=== PATIENT | male | born 1945 | race Caucasian/White ===

== ENCOUNTER → 2016-07-28 | Outpatient (CLI) | payer MEDICARE ==
[2016-07-28 10:57] LABS: ABSOLUTE EOSINOPHILS # (AUTO) 0.1 10^3/uL (0.0-0.6); ABSOLUTE LYMPHOCYTES (AUTO) 0.6 10^3/uL (0.5-4.7); ABSOLUTE MONOCYTES (AUTO) 0.4 10^3/uL (0.1-1.4); ABSOLUTE NEUT (AUTO) 4.2 10^3/uL (1.7-8.2); BASOPHILS % (AUTO) 0.4 % (0-2); EOSINOPHILS % (AUTO) 2.5 % (0-6); HEMATOCRIT 34.2 % (37.9-51.0); HGB HCT DIFFERENCE 1.8; LYMPHOCYTES % (AUTO) 11.8 % (13-45); MEAN CORPUSCULAR HGB CONC 35.2 g/dL (32.0-36.0); MEAN CORPUSCULAR VOLUME 85 fl (80-97); MONOCYTES % (AUTO) 7.5 % (3-13); RED BLOOD COUNT 4.01 10^6/uL (4.35-5.55); RED CELL DISTRIBUTION WIDTH 13.2 % (11.5-14.0); SEGMENTED NEUTROPHILS % (AUTO) 77.8 % (42-78); WHITE BLOOD COUNT 5.5 10^3/uL (4.0-10.5)
[2016-07-28 11:23] LABS: ANION GAP 13 (5-19); BLOOD UREA NITROGEN 8 mg/dL (7-20); CALCIUM 9.3 mg/dL (8.4-10.2); CARBON DIOXIDE 26 mmol/L (22-30); CHLORIDE 100 mmol/L (98-107); GLUCOSE 114 mg/dL (75-110); POTASSIUM 4.3 mmol/L (3.6-5.0)
== END ==
LOC: LAB 10:36
PROVIDERS: ATTEND Internal Medicine Gastroenterology
DX: R19.7 Diarrhea, unspecified (principal)
CPT/HCPCS: 36415; 80048; 85025

== ENCOUNTER → 2016-08-09 | Outpatient (CLI) | payer MEDICARE ==
[2016-08-09 11:29] LABS: ABSOLUTE BASOPHILS # (AUTO) 0.1 10^3/uL (0.0-0.2); ABSOLUTE EOSINOPHILS # (AUTO) 0.2 10^3/uL (0.0-0.6); ABSOLUTE LYMPHOCYTES (AUTO) 1.3 10^3/uL (0.5-4.7); ABSOLUTE MONOCYTES (AUTO) 0.4 10^3/uL (0.1-1.4); ABSOLUTE NEUT (AUTO) 4.2 10^3/uL (1.7-8.2); BASOPHILS % (AUTO) 0.8 % (0-2); EOSINOPHILS % (AUTO) 3.7 % (0-6); HEMATOCRIT 39.3 % (37.9-51.0); HEMOGLOBIN 12.9 g/dL (13.5-17.0); HGB HCT DIFFERENCE -0.6; LYMPHOCYTES % (AUTO) 21.6 % (13-45); MEAN CORPUSCULAR HEMOGLOBIN 28.9 pg (27.0-33.4); MEAN CORPUSCULAR HGB CONC 32.9 g/dL (32.0-36.0); MEAN CORPUSCULAR VOLUME 88 fl (80-97); MONOCYTES % (AUTO) 6.2 % (3-13); RED BLOOD COUNT 4.48 10^6/uL (4.35-5.55); RED CELL DISTRIBUTION WIDTH 13.2 % (11.5-14.0); SEGMENTED NEUTROPHILS % (AUTO) 67.7 % (42-78); WHITE BLOOD COUNT 6.2 10^3/uL (4.0-10.5)
[2016-08-09 11:53] LABS: ALANINE AMINOTRANSFERASE 26 U/L (21-72); ALBUMIN 4.3 g/dL (3.5-5.0); ALKALINE PHOSPHATASE 73 U/L (38-126); AMYLASE 59 U/L (30-110); ANION GAP 13 (5-19); ASPARTATE AMINO TRANSFERASE 30 U/L (17-59); BILIRUBIN,TOTAL 0.5 mg/dL (0.2-1.3); BLOOD UREA NITROGEN 12 mg/dL (7-20); CARBON DIOXIDE 30 mmol/L (22-30); CHLORIDE 100 mmol/L (98-107); CREATININE RESULT 1.03 mg/dL (0.52-1.25); GLUCOSE 100 mg/dL (75-110); LIPASE 31.4 U/L (23-300); POTASSIUM 5.1 mmol/L (3.6-5.0); SODIUM 142.9 mmol/L (137-145); TOTAL PROTEIN 7.6 g/dL (6.3-8.2)
[2016-08-09 12:06] LABS: ERYTHROCYTE SEDIMENTATION RATE 41 mm/hr (0-20)
[2016-08-09 12:42] LABS: C-REACTIVE PROTEIN < 5.0 mg/L (<10.0)
[2016-08-10 06:38] LABS: IMMUNOGLOBULIN E 29 IU/mL (0-100)
[2016-08-10 07:11] LABS: IMMUNOGLOBULIN M 17 mg/dL (15-143)
[2016-08-10 11:40] LABS: ADRENOCORTICOTROPIC HORMONE 23.3 pg/mL (7.2-63.3)
[2016-08-10 13:38] LABS: IGG SUBCLASS 1 820 mg/dL (422-1292); IGG SUBCLASS 2 364 mg/dL (117-747); IGG SUBCLASS 3 37 mg/dL (41-129); IMMUNOGLOBULIN G 1325 mg/dL (700-1600)
[2016-08-10 14:31] LABS: IGG SUBCLASS 4 47 mg/dL (1-291)
[2016-08-11 09:09] LABS: DEAMIDATED GLIADIN IGA AB 1 units (0-19); DEAMIDATED GLIADIN IGG AB 7 units (0-19); IMMUNOGLOBULIN A 2 90 mg/dL (61-437); T-TRANSGLUTAMINASE (TTG) IGG 3 U/mL (0-5)
[2016-08-11 16:39] LABS: CYTOPLASMIC (C-ANCA) <1:20 titer (Neg:<1:20)
== END ==
LOC: LAB 10:24
PROVIDERS: ATTEND Internal Medicine Infectious Disease
DX: E55.9 Vitamin D deficiency, unspecified (principal); Z79.899 Other long term (current) drug therapy; D51.9 Vitamin B12 deficiency anemia, unspecified; N41.9 Inflammatory disease of prostate, unspecified; D83.9 Common variable immunodeficiency, unspecified; D64.9 Anemia, unspecified; R11.0 Nausea; R10.9 Unspecified abdominal pain; G89.29 Other chronic pain
CPT/HCPCS: 36415; 80053; 82024; 82088; 82150; 82533; 82607; 82728; 82784; 82785; 82787; 83520; 83540; 83550; 83690; 84153; 84436; 84443; 85025; 85652; 86021; 86038; 86140; 86317

== ENCOUNTER 2016-08-21 15:00 | Emergency (ER) | payer MEDICARE ==
[2016-08-21] MEDS ORDERED: ASPIRIN 81 MG TABLET, CHEWABLE PO ONE (15:23)
--- NOTE | 2016-08-21 15:29 | ER Document Report ---
ED Medical Screen (RME) - General Chief Complaint: Shortness Of Breath Stated Complaint: FEVER Time seen by provider: 15:25 Mode of Arrival: Ambulatory Information source: Patient Notes: 71-year-old nonsmoking, hypertensive, IgG immunodeficiency complaining of weakness since yesterday morning, nausea and shortness of breath. He thinks he caught something [place] in [place]. No chest pain. No cough on and on for one week. Pneumonia 2015. No urinary symptoms. Chills at 0200, no sweats. Got flu shot this year. TRAVEL OUTSIDE OF THE [place] IN LAST 30 DAYS: No - Related Data Allergies/Adverse Reactions: meperidine HCl [From Demerol] Allergy (Mild, Verified 08/21/16 15:24) Hives Past Medical History - Social History Chew tobacco use (# tins/day): No Frequency of alcohol use: Occasional Drug Abuse: None - Past Medical History Cardiac Medical History: Reports: Hx Hypercholesterolemia, Hx Hypertension Pulmonary Medical History: Reports: Hx Pneumonia Renal/ Medical History: Reports: Hx Benign Prostatic Hyperplasia, Hx Renal Insufficiency. Denies: Hx Peritoneal Dialysis GI Medical History: Reports: Hx Gastroesophageal Reflux Disease, Hx Hiatal Hernia, Hx Ulcer Psychiatric Medical History: Reports: Hx Anxiety, Hx Depression Past Surgical History: Reports: Hx Abdominal Surgery - HERNIA, Hx Appendectomy, Hx Herniorrhaphy, Hx Orthopedic Surgery - knee surgery x4 - Immunizations Immunizations up to date: Yes Hx Diphtheria, Pertussis, Tetanus Vaccination: No Physical Exam - Vital signs Vitals: Temp Pulse Resp BP Pulse Ox 98.2 F 69 20 143/52 H 96 08/21/16 15:17 08/21/16 15:17 08/21/16 15:17 08/21/16 15:17 08/21/16 15:17 Course - Vital Signs Vital signs: Temp Pulse Resp BP Pulse Ox 98.2 F 69 20 143/52 H 96 08/21/16 15:17 08/21/16 15:17 08/21/16 15:17 08/21/16 15:17 08/21/16 15:17
[2016-08-21 16:06] LABS: ABSOLUTE EOSINOPHILS # (AUTO) 0.1 10^3/uL (0.0-0.6); ABSOLUTE LYMPHOCYTES (AUTO) 1.3 10^3/uL (0.5-4.7); ABSOLUTE MONOCYTES (AUTO) 0.5 10^3/uL (0.1-1.4); ABSOLUTE NEUT (AUTO) 8.6 10^3/uL (1.7-8.2); BASOPHILS % (AUTO) 0.3 % (0-2); EOSINOPHILS % (AUTO) 1.2 % (0-6); HEMATOCRIT 32.8 % (37.9-51.0); HEMOGLOBIN 11.6 g/dL (13.5-17.0); LYMPHOCYTES % (AUTO) 12.6 % (13-45); MEAN CORPUSCULAR HEMOGLOBIN 29.9 pg (27.0-33.4); MEAN CORPUSCULAR HGB CONC 35.3 g/dL (32.0-36.0); MEAN CORPUSCULAR VOLUME 85 fl (80-97); MONOCYTES % (AUTO) 4.8 % (3-13); RED BLOOD COUNT 3.87 10^6/uL (4.35-5.55); RED CELL DISTRIBUTION WIDTH 12.9 % (11.5-14.0); SEGMENTED NEUTROPHILS % (AUTO) 81.1 % (42-78); WHITE BLOOD COUNT 10.6 10^3/uL (4.0-10.5)
[2016-08-21 16:35] LABS: ALANINE AMINOTRANSFERASE 26 U/L (21-72); ALBUMIN 4.3 g/dL (3.5-5.0); ALKALINE PHOSPHATASE 61 U/L (38-126); ANION GAP 11 (5-19); ASPARTATE AMINO TRANSFERASE 21 U/L (17-59); BILIRUBIN,TOTAL 0.9 mg/dL (0.2-1.3); BLOOD UREA NITROGEN 20 mg/dL (7-20); CALCIUM 9.2 mg/dL (8.4-10.2); CARBON DIOXIDE 27 mmol/L (22-30); CHLORIDE 95 mmol/L (98-107); CREATINE KINASE 50 U/L (55-170); CREATININE RESULT 1.43 mg/dL (0.52-1.25); GLUCOSE 109 mg/dL (75-110); POTASSIUM 4.8 mmol/L (3.6-5.0); SODIUM 133.2 mmol/L (137-145); TOTAL PROTEIN 7.1 g/dL (6.3-8.2)
--- NOTE | 2016-08-21 16:37 | ER Document Report ---
ED Respiratory Problem - General Chief Complaint: Shortness Of Breath Stated Complaint: FEVER Mode of Arrival: Ambulatory Information source: Patient TRAVEL OUTSIDE OF THE [place] IN LAST 30 DAYS: No - HPI Patient complains to provider of: Other - FEVER, COUGH Onset: This morning Duration: Intermittent episodes Initiating Event: Other - SEE PMH Quality of pain: No pain Severity: Mild Context: Other - IMMUNE DEFICIENCY SYNDROME, FOLLOWED BY IMMUNOLOGY @ [place] Sputum amount: Scant Sputum color: Yellow Sputum consistency: Mucoid Associated symptoms: Cough, Fever - SUBJECTIVE Similar symptoms previously: Yes - GETS PNEUMONIA FREQUENTLY, W/ SIMILAR SXS. Recently seen / treated by doctor: Yes - I.D. SPECIALIST, 2 WKS AGO - Related Data Allergies/Adverse Reactions: meperidine HCl [From Demerol] Allergy (Mild, Verified 08/21/16 15:24) Hives Past Medical History - General Information source: Patient - Social History Smoking Status: Never Smoker Chew tobacco use (# tins/day): No Frequency of alcohol use: Occasional Drug Abuse: None Family History: Reviewed & Not Pertinent Patient has suicidal ideation: No Patient has homicidal ideation: No - Past Medical History Cardiac Medical History: Reports: Hx Hypercholesterolemia, Hx Hypertension Pulmonary Medical History: Reports: Hx Pneumonia Neurological Medical History: Reports: None Endocrine Medical History: Reports: None Renal/ Medical History: Reports: Hx Benign Prostatic Hyperplasia, Hx Renal Insufficiency. Denies: Hx Peritoneal Dialysis Malignancy Medical History: Reports None GI Medical History: Reports: Hx Gastroesophageal Reflux Disease, Hx Hiatal Hernia, Hx Ulcer Musculoskeltal Medical History: Reports None Psychiatric Medical History: Reports: Hx Anxiety, Hx Depression Infectious Medical History: Reports: Other - IMMUNE DEFICIENCY SYNDROME Past Surgical History: Reports: Hx Abdominal Surgery - HERNIA, Hx Appendectomy, Hx Herniorrhaphy, Hx Orthopedic Surgery - knee surgery x4 - Immunizations Immunizations up to date: Yes Hx Diphtheria, Pertussis, Tetanus Vaccination: No Hx Pneumococcal Vaccination: 07/25/08 Review of Systems - Review of Systems Constitutional: See HPI EENT: No symptoms reported. denies: Throat pain, Difficulty swallowing Cardiovascular: No symptoms reported. denies: Chest pain Respiratory: See HPI Gastrointestinal: No symptoms reported Genitourinary: No symptoms reported Musculoskeletal: No symptoms reported Skin: No symptoms reported. denies: Lesions Neurological/Psychological: No symptoms reported. denies: Headaches Physical Exam - Vital signs Vitals: Temp Pulse Resp BP Pulse Ox 98.2 F 69 20 143/52 H 96 08/21/16 15:17 08/21/16 15:17 08/21/16 15:17 08/21/16 15:17 08/21/16 15:17 Interpretation: Hypertensive. No: Tachycardic, Hypoxic, Tachypneic, Febrile - General General appearance: Appears well, Alert In distress: None - HEENT Head: Normocephalic Eyes: Normal Conjunctiva: Normal Ears: Normal Nasal: Normal Mouth/Lips: Normal Mucous membranes: Normal Pharynx: Normal Neck: Normal, Supple - Respiratory Respiratory status: No respiratory distress Chest status: Nontender Breath sounds: Nonproductive cough, Rales - R. BASE. No: Rhonchi, Wheezing - Cardiovascular Rhythm: Regular Heart sounds: Normal auscultation Murmur: No - Abdominal Inspection: Normal Distension: No distension - Extremities General upper extremity: Normal inspection General lower extremity: Normal inspection - Neurological Neuro grossly intact: Yes Cognition: Normal Orientation: AAOx4 - Psychological Associated symptoms: Normal affect, Normal mood - Skin Skin Temperature: Warm Skin Moisture: Dry Skin Color: Normal Skin Turgor: Elastic Course - Vital Signs Vital signs: Temp Pulse Resp BP Pulse Ox 98.2 F 69 20 143/52 H 97 08/21/16 15:17 08/21/16 15:17 08/21/16 16:10 08/21/16 15:17 08/21/16 16:10 - Laboratory Result Diagrams: 08/21/16 15:50 08/21/16 15:50 Laboratory results interpreted by me: 08/21/16 08/21/16 15:50 15:50 WBC 10.6 H RBC 3.87 L Hgb 11.6 L Hct 32.8 L Seg Neutrophils % 81.1 H Lymphocytes % 12.6 L Absolute Neutrophils 8.6 H Sodium 133.2 L Chloride 95 L Creatinine 1.43 H Est GFR ( Amer) 59 L Est GFR (Non-Af Amer) 49 L Creatine Kinase 50 L Discharge - Discharge Clinical Impression: Immune deficiency disorder, disease or syndrome Pneumonia Qualifiers: Pneumonia type: due to unspecified organism Laterality: right Lung location: lower lobe of lung Qualified Code(s): J18.1 - Lobar pneumonia, unspecified organism Condition: Stable Disposition: HOME, SELF-CARE Instructions: Pneumonia ([facility]), Augmentin ([facility]) Additional Instructions: BEGIN TAKING AUGMENTIN, 500 mg THREE TIMES A DAY (TAKE 2 DOSES TODAY) CONTINUE OTHER MEDS BEFORE. DRINK PLENTY OF FLUIDS. TAKE MUCINEX OR OTHER EXPECTORANT TO HELP LOOSEN SECRETIONS. FOLLOW UP WITH YOUR INFECTIOUS DISEASE DOCTOR, CALL TUESDAY FOR ADVICE. RETURN TO E.R. IF YOU GET WORSE IN ANY WAY. Referrals: HEIDI AVILA MD [NO LOCAL MD] - Follow up as needed
[2016-08-21 16:45] LABS: CREATINE KINASE MB 0.91 ng/mL (<4.55)
[2016-08-21 16:46] LABS: TROPONIN I < 0.012 ng/mL
[2016-08-21 17:42] VITALS: BP 168/70
--- NOTE | 2016-08-21 20:05 | EKG REPORT ---
SEVERITY:- ABNORMAL ECG - SINUS RHYTHM FIRST DEGREE AV BLOCK PROBABLE LEFT ATRIAL ABNORMALITY LVH WITH SECONDARY REPOLARIZATION ABNORMALITY : Confirmed by: Lucy Barnes MD 21-Aug-2016 20:04:46
== END 2016-08-21 17:25 | disposition home or self-care (01) ==
LOC: ER 15:00
DX: J18.1 Lobar pneumonia, unspecified organism (principal); D84.9 Immunodeficiency, unspecified; I10 Essential (primary) hypertension; R05 Cough; R09.89 Other specified symptoms and signs involving the circulatory and respiratory systems; Z88.5 Allergy status to narcotic agent
CPT/HCPCS: 93005; 99285; 36415; 82553; 82550; 85025; 80053; 84484; 71010; 93010; A9270

== ENCOUNTER 2016-08-24 18:15 | Emergency (ER) | payer OTHER, MEDICARE ==
[2016-08-24] MEDS ORDERED: NAPROXEN 250 MG TABLET PO ONE (20:06)
[2016-08-24] MEDS ORDERED: ACETAMINOPHEN 325 MG TABLET PO ONE (20:06)
--- NOTE | 2016-08-24 20:08 | ER Document Report ---
ED General - General Chief Complaint: Back Pain Stated Complaint: LOWER BACK PAIN Notes: Patient is a 71-year-old male with past medical history of chronic back pain currently off of all his chronic pain medications who presents after he had an acute episode of back pain that is bilateral central back. States that this started after he got up and out of his chair very quickly. States after the pain developed again have "one of my typical panic attacks" when she began to hyperventilate, feel short of breath and lightheaded. States that this did all spontaneously resolved after approximate 45 minutes. At time of arrival he states that his back pain is mostly resolved but does continue to complain of a mild midthoracic bilateral back pain that is dull, aching in nature. Nothing improves or worsens the pain. He denies any urinary incontinence, retention, weakness, numbness, or difficulty ambulating. He has not seen his primary care physician regarding today's concerns. TRAVEL OUTSIDE OF THE [place] IN LAST 30 DAYS: No - Related Data Allergies/Adverse Reactions: meperidine HCl [From Demerol] Allergy (Mild, Verified 08/21/16 15:24) Dinoes Past Medical History - General Information source: Patient - Social History Smoking Status: Never Smoker Frequency of alcohol use: None Drug Abuse: None Lives with: Spouse/Significant other Family History: Reviewed & Not Pertinent - Past Medical History Cardiac Medical History: Reports: Hx Hypercholesterolemia, Hx Hypertension Pulmonary Medical History: Reports: Hx Pneumonia Renal/ Medical History: Reports: Hx Benign Prostatic Hyperplasia, Hx Renal Insufficiency. Denies: Hx Peritoneal Dialysis GI Medical History: Reports: Hx Gastroesophageal Reflux Disease, Hx Hiatal Hernia, Hx Ulcer Psychiatric Medical History: Reports: Hx Anxiety, Hx Depression Past Surgical History: Reports: Hx Abdominal Surgery - HERNIA, Hx Appendectomy, Hx Herniorrhaphy, Hx Orthopedic Surgery - knee surgery x4, back surgery - Immunizations Immunizations up to date: Yes Hx Diphtheria, Pertussis, Tetanus Vaccination: No Hx Pneumococcal Vaccination: 07/25/08 Review of Systems - Review of Systems Notes: Constitutional: Negative for fever. HENT: Negative for sore throat. Eyes: Negative for visual changes. Cardiovascular: Negative for chest pain. Respiratory: Negative for shortness of breath. Gastrointestinal: Negative for abdominal pain, vomiting or diarrhea. Genitourinary: Negative for dysuria. Musculoskeletal: Positive for back pain. Skin: Negative for rash. Neurological: Negative for headaches, weakness or numbness. 10 point ROS negative except as marked above and in HPI. Physical Exam - Vital signs Vitals: Temp Pulse Resp BP Pulse Ox 97.6 F 72 18 155/82 H 96 08/24/16 18:23 08/24/16 18:23 08/24/16 18:23 08/24/16 18:23 08/24/16 18:23 Interpretation: Hypertensive Notes: PHYSICAL EXAMINATION: GENERAL: Well-appearing, well-nourished and in no acute distress. HEAD: Atraumatic, normocephalic. EYES: Pupils equal round and reactive to light, extraocular movements intact, sclera anicteric, conjunctiva are normal. ENT: nares patent, oropharynx clear without exudates. Moist mucous membranes. NECK: Normal range of motion, supple without lymphadenopathy LUNGS: Breath sounds clear to auscultation bilaterally and equal. No wheezes rales or rhonchi. HEART: Regular rate and rhythm without murmurs ABDOMEN: Soft, nontender, normoactive bowel sounds. No guarding, no rebound. No masses appreciated. EXTREMITIES: Normal range of motion, no pitting or edema. No cyanosis. Back: No midline spinal Tenderness, step-offs or deformities. Mild pain in the bilateral lateral perilumbar spine in the T10 T12 region NEUROLOGICAL: 5 out of 5 strength both distally and proximally bilateral lower extremities. 2+ patellar reflexes bilaterally. No clonus. Sensation grossly intact in the bilateral lower extremities. Patient is able to ambulate without difficulty. PSYCH: Normal mood, normal affect. SKIN: Warm, Dry, normal turgor, no rashes or lesions noted. Course - Re-evaluation Re-evalutation: 08/24/16 20:07 Presentation of a well appearing patient complaining of acute on chronic back pain. No rapid progression of symptoms, systemic symptoms including fevers, chills, weight loss, history of recent bacterial infection, bilateral symptoms, numbness, weakness, difficulty walking, urinary retention or bowel incontinence , personal history of cancer, immunosuppression, diabetes, known AAA, or history of IV drug use. Exam is without point tenderness over vertebral bodies , pulsatile abdominal mass, and patient has symmetric and intact lower extremity strength, sensation, and reflexes without clonus. 2+ symmetric medial malleolar and dorsalis pedis pulses Based on history and physical, I have a very low suspicion of a concerning etiology of pain including epidural compression syndrome, spinal infection, transverse myelitis, malignancy, abdominal aortic aneurysm, renal colic, acute lower extremity claudication, neurogenic claudication, ankylosing spondylitis, or other intra-abdominal process. Due to absence of concerning risk factors in history and physical as well as absence of rapidly progressive, severe, or bilateral symptoms, will defer imaging at this point. However, given patient's brief episode that she characterizes as consistent with his typical panic attack , will obtain basic laboratories including a troponin, EKG and basic metabolic panel. If these are reassuring will plan for discharge home with return precautions and follow-up recommendations 08/24/16 21:42 Patient continues to be asymptomatic and back pain is improved. Return is unremarkable as well as EKG.At this time will discharge with return precautions and follow-up recommendations. Verbal discharge instructions given a the bedside and opportunity for questions given. Medication warnings reviewed. Patient is in agreement with this plan and has verbalized understanding of return precautions and the need for primary care follow-up in the next 24-72 hours. - Vital Signs Vital signs: Temp Pulse Resp BP Pulse Ox 97.8 F 68 18 168/75 H 98 08/24/16 22:09 08/24/16 22:09 08/24/16 22:09 08/24/16 22:09 08/24/16 22:09 - Laboratory Result Diagrams: 08/24/16 20:21 Laboratory results interpreted by me: 08/24/16 20:21 Sodium 132.9 L Chloride 96 L - EKG Interpretation by Me Additional EKG results interpreted by me: 08/24/16 21:41 Normal sinus rhythm. Rate 63.Elevations or depressions. QTC 439 Discharge - Discharge Clinical Impression: Back pain Qualifiers: Back pain location: low back pain Chronicity: acute Back pain laterality: bilateral Sciatica presence: without sciatica Qualified Code(s): M54.5 - Low back pain Condition: Good Disposition: HOME, SELF-CARE Additional Instructions: You have been seen in the Emergency Department (ED) today for back pain. Your workup and exam have not shown any acute abnormalities and you are likely suffering from muscle strain or possible problems with your discs, but there is no treatment that will fix your symptoms at this time. Please take the naproxen that has been prescribed as directed. You should also purchase a local lidocaine cream such as "aspercreme with lidocaine" and use per bottle instructions to the affected area. Apply heat to the area as often as you are able. Continue to keep active and avoid prolonged periods of bed rest. Please follow up with your doctor as soon as possible regarding today's ED visit and your back pain. Return to the ED for worsening back pain, fever, weakness or numbness of either leg, or if you develop either (1) an inability to urinate or have bowel movements, or (2) loss of your ability to control your bathroom functions (if you start having "accidents"), or if you develop other new symptoms that concern you.concern you. Prescriptions: Naproxen 500 mg PO BID #60 tablet Referrals: RADHA DIXON MD [Primary Care Provider] - Follow up as needed
[2016-08-24 20:55] LABS: ANION GAP 10 (5-19); BLOOD UREA NITROGEN 12 mg/dL (7-20); CALCIUM 9.7 mg/dL (8.4-10.2); CARBON DIOXIDE 27 mmol/L (22-30); CHLORIDE 96 mmol/L (98-107); CREATININE RESULT 1.02 mg/dL (0.52-1.25); GLUCOSE 107 mg/dL (75-110); POTASSIUM 4.7 mmol/L (3.6-5.0); SODIUM 132.9 mmol/L (137-145)
[2016-08-24 22:11] VITALS: BP 168/75
--- NOTE | 2016-08-25 09:24 | EKG REPORT ---
SEVERITY:- ABNORMAL ECG - SINUS RHYTHM NONSPECIFIC INTRAVENTRICULAR CONDUCTION DELAY LEFT VENTRICULAR HYPERTROPHY : Confirmed by: Alonzo Corey 25-Aug-2016 09:23:59
== END 2016-08-24 22:11 | disposition home or self-care (01) ==
LOC: ER 18:15
DX: M54.5 Low back pain (principal); M54.6 Pain in thoracic spine; G89.29 Other chronic pain; F41.0 Panic disorder [episodic paroxysmal anxiety]; I10 Essential (primary) hypertension; Z88.5 Allergy status to narcotic agent
CPT/HCPCS: 36415; 80048; 84484; 93005; 93010; 99283

== ENCOUNTER 2016-09-14 09:22 | Emergency (ER) | payer OTHER, MEDICARE ==
--- NOTE | 2016-09-14 10:09 | ER Document Report ---
ED General - General Time seen by provider: 10:00 Mode of Arrival: Ambulatory Information source: Patient TRAVEL OUTSIDE OF THE [place] IN LAST 30 DAYS: No - HPI Associated symptoms: Diarrhea, Weakness <TRACI LEE - Last Filed: 09/14/16 11:08> <CAROLE HARVEY - Last Filed: 09/14/16 13:23> - General Chief Complaint: Breathing Difficulty Stated Complaint: SHORTNESS OF BREATH Notes: Patient is a 71-year-old male presenting to the emergency department for her diarrhea and weakness. Patient states he has had diarrhea for the past 3 months with no relief. Patient was seen his PCP for this was given him some medications but none have provided any relief. Patient's PCP is Dr. Dixon. Patient states that he has been feeling very weak and it is very difficult for him to even stand up patient as he has no energy. Patient also complains of having some cough and sinus headache. Patient has been asymptomatic since relieved his symptoms. Patient states that his diarrhea is approximately 3-4 times a day and is heavier in the mornings. Patient also complains of some back pain and that she has some chronic low back pain from degenerative disease ; patient is currently seeing pain management for this. Patient has a history of IgG deficiency and takes Hizentra for this. Patient also has a history of renal insufficiency, depression, anxiety, anemia, GERD, history of hernia and BPH. Patient had his diarrhea cultured at [facility] in May and it grew 2 different Lilliam species. Patient is allergic to mepridine HCl. (TRACI LEE) - Related Data Allergies/Adverse Reactions: meperidine HCl [From Demerol] Allergy (Mild, Verified 08/21/16 15:24) Hives Past Medical History - General Information source: Patient - Social History Smoking Status: Never Smoker Cigarette use (# per day): No Chew tobacco use (# tins/day): No Frequency of alcohol use: Rare Drug Abuse: None Family History: None - Past Medical History Cardiac Medical History: Reports: Hx Hypercholesterolemia, Hx Hypertension Pulmonary Medical History: Reports: Hx Pneumonia Renal/ Medical History: Reports: Hx Benign Prostatic Hyperplasia, Hx Renal Insufficiency GI Medical History: Reports: Hx Gastroesophageal Reflux Disease, Hx Hiatal Hernia, Hx Ulcer Psychiatric Medical History: Reports: Hx Anxiety, Hx Depression Past Surgical History: Reports: Hx Abdominal Surgery - HERNIA, Hx Appendectomy, Hx Herniorrhaphy, Hx Orthopedic Surgery - knee surgery x4, back surgery - Immunizations Immunizations up to date: Yes Hx Diphtheria, Pertussis, Tetanus Vaccination: No Hx Pneumococcal Vaccination: 07/25/08 <TRACI LEE - Last Filed: 09/14/16 11:08> Review of Systems - Review of Systems Constitutional: No symptoms reported EENT: No symptoms reported Cardiovascular: No symptoms reported Respiratory: No symptoms reported Gastrointestinal: No symptoms reported Genitourinary: No symptoms reported Male Genitourinary: No symptoms reported Musculoskeletal: No symptoms reported Skin: No symptoms reported Hematologic/Lymphatic: No symptoms reported Neurological/Psychological: No symptoms reported -: Yes All other systems reviewed and negative <TRACI LEE - Last Filed: 09/14/16 11:08> Physical Exam - Vital signs Interpretation: Normal - General General appearance: Appears well, Alert - HEENT Head: Normocephalic, Atraumatic Eyes: Normal Pupils: PERRL Mucous membranes: Moist - Respiratory Respiratory status: No respiratory distress Chest status: Nontender Breath sounds: Other - Course breath sounds during the cough Chest palpation: Normal - Cardiovascular Rhythm: Regular Heart sounds: Normal auscultation Murmur: No - Abdominal Inspection: Normal Distension: No distension Bowel sounds: Normal Tenderness: Nontender Organomegaly: No organomegaly - Back Back: Normal, Tender - Lumbar musculature is tender to palpation consistent with chronic back pain - Extremities General upper extremity: Normal inspection, Normal ROM, Normal strength General lower extremity: Normal inspection, Normal ROM, Normal strength - Neurological Neuro grossly intact: Yes Cognition: Normal Orientation: AAOx4 Corry Coma Scale Eye Opening: Spontaneous Corry Coma Scale Verbal: Oriented Corry Coma Scale Motor: Obeys Commands Corry Coma Scale Total: 15 Speech: Normal - Psychological Associated symptoms: Normal affect, Normal mood - Skin Skin Temperature: Warm Skin Moisture: Dry <TRACI LEE - Last Filed: 09/14/16 11:08> Course - Laboratory Result Diagrams: 09/14/16 10:15 09/14/16 10:15 <TRACI LEE - Last Filed: 09/14/16 11:08> - Laboratory Result Diagrams: 09/14/16 10:15 09/14/16 10:15 - Diagnostic Test Radiology reviewed: Image reviewed, Reports reviewed - Chest x-ray does not show any acute process - EKG Interpretation by Me EKG shows normal: Sinus rhythm, [place], Intervals, QRS Complexes, ST-T Waves Rate: Normal - 59 Rhythm: NSR Voltage: Consistant with [facility] - Consults Dr. Dixon Time consulted: 13:10 Consulted provider: follow-up in office - He will have the office call the patient to schedule an appointment. <CAROLE HARVEY - Last Filed: 09/14/16 13:23> - Vital Signs Vital signs: Temp Pulse Resp BP Pulse Ox 97.8 F 63 15 139/67 H 96 09/14/16 09:25 09/14/16 09:25 09/14/16 10:00 09/14/16 09:25 09/14/16 10:00 (TRACI LEE) (CAROLE HARVEY) - Laboratory Laboratory results interpreted by me: 09/14/16 09/14/16 10:15 10:15 RBC 4.08 L Hgb 12.0 L Hct 34.2 L ESR 39 H Sodium 133.2 L Creatine Kinase 31 L (CAROLE HARVEY) Discharge <TRACI LEE - Last Filed: 09/14/16 11:08> <CAROLE HARVEY - Last Filed: 09/14/16 13:23> - Discharge Clinical Impression: Viral URI with cough, Chronic diarrhea Condition: Stable Disposition: HOME, SELF-CARE Additional Instructions: Upper Respiratory Illness: You have a viral infection of the respiratory passages -- a "cold." This common infection causes nasal congestion, drainage, and often sore throat and cough. It is caused by a virus and is highly contagious. The disease usually lasts a week or more, though the worst symptoms are usually over in 3 or 4 days. There is no "cure" for the viral infection -- it must run its course. If there is a complication, such as bacterial infection in the nose, sinuses, middle ear, or bronchial tubes, antibiotics may be required, but antibiotics won 't affect the virus. If you smoke, you should STOP!! Drink plenty of fluids. A humidifier may help. An expectorant medication or decongestant may make you more comfortable. Use acetaminophen or ibuprofen for fever or aches. See the doctor if fever persists over two or three days, if there is any significant worsening of your symptoms, or if you simply fail to improve as expected. Diarrhea Diarrhea means frequent, watery stools. There are many causes. Any problem that keeps the intestinal tract from absorbing water from the stool can lead to diarrhea. A sudden new diarrhea problem is usually caused by a virus, food sensitivity, toxic bacteria, or drugs. In this case, we expect the problem to go away soon. Testing is done only if you seem seriously ill from the diarrhea. If you have chronic diarrhea, or diarrhea that keeps coming back, we need to find out why. Chronic diarrhea can be due to inflammation of the bowels such as Crohn's disease or ulcerative colitis, food sensitivity such as intolerance to lactose or wheat protein, irritable bowel syndrome, and other problems. If your diarrhea is a significant problem but it's not clear why you have it, we' ll refer you to a specialist for further testing. DR. DIXON'S OFFICE WILL CALL YOU TO SCHEDULE AN APPOINTMENT. RETURN TO THE EMERGENCY ROOM IF ANY NEW OR WORSENING SYMPTOMS. Referrals: RADHA DIXON MD [ACTIVE STAFF] - (THE OFFICE WILL CALL TO SCHEDULE AN APPOINTMENT.) Scribe Attestation: 09/14/16 13:23 I personally performed the services described in the documentation, reviewed and edited the documentation which was dictated to the scribe in my presence, and it accurately records my words and actions. (CAROLE HARVEY) Scribe Documentation - Scribe Written by Scribjeremy:: Traci Lee 09/14/16 11:11 acting as scribe for :: Porfirio <TRACI LEE - Last Filed: 09/14/16 11:08>
[2016-09-14 10:49] LABS: ABSOLUTE EOSINOPHILS # (AUTO) 0.1 10^3/uL (0.0-0.6); ABSOLUTE LYMPHOCYTES (AUTO) 1.4 10^3/uL (0.5-4.7); ABSOLUTE MONOCYTES (AUTO) 0.5 10^3/uL (0.1-1.4); ABSOLUTE NEUT (AUTO) 3.1 10^3/uL (1.7-8.2); BASOPHILS % (AUTO) 0.8 % (0-2); EOSINOPHILS % (AUTO) 2.9 % (0-6); HEMATOCRIT 34.2 % (37.9-51.0); HGB HCT DIFFERENCE 1.8; LYMPHOCYTES % (AUTO) 26.6 % (13-45); MEAN CORPUSCULAR HEMOGLOBIN 29.3 pg (27.0-33.4); MEAN CORPUSCULAR VOLUME 84 fl (80-97); MONOCYTES % (AUTO) 9.6 % (3-13); RED BLOOD COUNT 4.08 10^6/uL (4.35-5.55); RED CELL DISTRIBUTION WIDTH 13.5 % (11.5-14.0); SEGMENTED NEUTROPHILS % (AUTO) 60.1 % (42-78); WHITE BLOOD COUNT 5.1 10^3/uL (4.0-10.5)
[2016-09-14 10:58] LABS: ALANINE AMINOTRANSFERASE 30 U/L (21-72); ALBUMIN 3.9 g/dL (3.5-5.0); ALKALINE PHOSPHATASE 81 U/L (38-126); ANION GAP 11 (5-19); ASPARTATE AMINO TRANSFERASE 25 U/L (17-59); BILIRUBIN,TOTAL 0.5 mg/dL (0.2-1.3); BLOOD UREA NITROGEN 8 mg/dL (7-20); CALCIUM 9.7 mg/dL (8.4-10.2); CARBON DIOXIDE 24 mmol/L (22-30); CHLORIDE 98 mmol/L (98-107); CREATINE KINASE 31 U/L (55-170); CREATININE RESULT 0.93 mg/dL (0.52-1.25); GLUCOSE 94 mg/dL (75-110); POTASSIUM 4.4 mmol/L (3.6-5.0); SODIUM 133.2 mmol/L (137-145); TOTAL PROTEIN 7.1 g/dL (6.3-8.2)
[2016-09-14 11:10] LABS: CREATINE KINASE MB 0.36 ng/mL (<4.55)
[2016-09-14 11:11] LABS: TROPONIN I < 0.012 ng/mL
[2016-09-14 11:41] LABS: ERYTHROCYTE SEDIMENTATION RATE 39 mm/hr (0-20)
--- NOTE | 2016-09-14 12:02 | EKG REPORT ---
SEVERITY:- ABNORMAL ECG - SINUS RHYTHM LVH WITH SECONDARY REPOLARIZATION ABNORMALITY : Confirmed by: Lucy Barnes MD 14-Sep-2016 12:01:24
[2016-09-14] MEDS ORDERED: MORPHINE SULFATE 10 MG/ML INJ IV ONE (12:24)
[2016-09-14 13:36] LABS: APPEARANCE,URINE CLEAR; BILIRUBIN,URINE NEGATIVE (NEGATIVE); GLUCOSE, URINE NEGATIVE (NEGATIVE); KETONES,URINE TRACE mg/dL (NEGATIVE); LEUKOCYTE ESTERASE,URINE NEGATIVE (NEGATIVE); NITRITE,URINE NEGATIVE (NEGATIVE); PROTEIN,URINE NEGATIVE (NEGATIVE); URINE SPECIFIC GRAVITY 1.006; UROBILINOGEN,URINE NEGATIVE mg/dL (<2.0)
[2016-09-14 14:18] VITALS: BP 183/71
== END 2016-09-14 14:18 | disposition home or self-care (01) ==
LOC: ER 09:22
DX: J06.9 Acute upper respiratory infection, unspecified (principal); B97.89 Other viral agents as the cause of diseases classified elsewhere; R06.02 Shortness of breath; R19.7 Diarrhea, unspecified; R53.1 Weakness; R51 Headache; D80.3 Selective deficiency of immunoglobulin G [IgG] subclasses; R05 Cough; I10 Essential (primary) hypertension; R09.89 Other specified symptoms and signs involving the circulatory and respiratory systems; M54.5 Low back pain; G89.29 Other chronic pain; Z79.899 Other long term (current) drug therapy; Z88.5 Allergy status to narcotic agent; Z90.49 Acquired absence of other specified parts of digestive tract
CPT/HCPCS: 93005; 99285; 96374; 36415; 87040; 82553; 82550; 85025; 85652; 80053; 81001; 84484; 71010; 93010; J2270

== ENCOUNTER 2016-09-24 20:02 | Inpatient (IN) | payer OTHER, MEDICARE ==
[2016-09-24] MEDS ORDERED: NORMAL SALINE 1000 ML 1,000 ML IV ONE ×2 (20:06→21:13)
[2016-09-24] MEDS ORDERED: ONDANSETRON HCL INJ/PF 4 MG/2 ML SDV IV ONE (20:06)
[2016-09-24 20:41] LABS: ABSOLUTE LYMPHOCYTES (AUTO) 0.9 10^3/uL (0.5-4.7); ABSOLUTE MONOCYTES (AUTO) 0.5 10^3/uL (0.1-1.4); ABSOLUTE NEUT (AUTO) 4.1 10^3/uL (1.7-8.2); BASOPHILS % (AUTO) 0.3 % (0-2); EOSINOPHILS % (AUTO) 0.2 % (0-6); HEMATOCRIT 31.6 % (37.9-51.0); HEMOGLOBIN 11.2 g/dL (13.5-17.0); LYMPHOCYTES % (AUTO) 15.4 % (13-45); MEAN CORPUSCULAR HEMOGLOBIN 29.2 pg (27.0-33.4); MEAN CORPUSCULAR HGB CONC 35.5 g/dL (32.0-36.0); MEAN CORPUSCULAR VOLUME 82 fl (80-97); MONOCYTES % (AUTO) 9.8 % (3-13); RED BLOOD COUNT 3.84 10^6/uL (4.35-5.55); RED CELL DISTRIBUTION WIDTH 13.4 % (11.5-14.0); SEGMENTED NEUTROPHILS % (AUTO) 74.3 % (42-78); WHITE BLOOD COUNT 5.5 10^3/uL (4.0-10.5)
[2016-09-24 20:56] LABS: ALANINE AMINOTRANSFERASE 31 U/L (21-72); ALKALINE PHOSPHATASE 88 U/L (38-126); ASPARTATE AMINO TRANSFERASE 24 U/L (17-59); BILIRUBIN,TOTAL 0.7 mg/dL (0.2-1.3); BLOOD UREA NITROGEN 9 mg/dL (7-20); CALCIUM 9.3 mg/dL (8.4-10.2); CARBON DIOXIDE 18 mmol/L (22-30); CHLORIDE 88 mmol/L (98-107); GLUCOSE 111 mg/dL (75-110); POTASSIUM 4.1 mmol/L (3.6-5.0); TOTAL PROTEIN 6.8 g/dL (6.3-8.2)
[2016-09-24 20:58] LABS: ANION GAP 13 (5-19)
[2016-09-24 21:02] LABS: SODIUM 118.6 mmol/L (137-145)
--- NOTE | 2016-09-24 21:17 | ER Document Report ---
ED General - General Stated Complaint: FALL,FACIAL PAIN Notes: Patient is a 71-year-old male with past history of chronic narcotic dependence recently cut off from his narcotics 6 weeks ago who presents with ongoing diarrhea, lightheadedness, multiple episodes of syncope at home. States that he went through a withdrawal clinic as an inpatient with a methadone taper and the symptoms all resolved during that time. States however after the methadone taper was completed his symptoms recurred and has been constant since that time. He has been trying loperamide at home without any improvement of his diarrhea. States that the diarrhea is worsened by any attempt at eating which also causes a diffuse abdominal cramping pain. Has never had similar symptoms in the past prior to being discontinued off his narcotics which she was on for over 17 years for chronic low back pain. He has had intermittent nonbilious vomiting at home but states he has not vomited today. Denies any chest pain or shortness of breath. He is scheduled to start in a methadone clinic next week. TRAVEL OUTSIDE OF THE [place] IN LAST 30 DAYS: No - Related Data Allergies/Adverse Reactions: meperidine HCl [From Demerol] Allergy (Mild, Verified 08/21/16 15:24) Hives Past Medical History - General Information source: Patient - Social History Smoking Status: Never Smoker Frequency of alcohol use: None Drug Abuse: None Lives with: Spouse/Significant other Family History: None - Past Medical History Cardiac Medical History: Reports: Hx Hypercholesterolemia, Hx Hypertension Pulmonary Medical History: Reports: Hx Pneumonia Renal/ Medical History: Reports: Hx Benign Prostatic Hyperplasia, Hx Renal Insufficiency. Denies: Hx Peritoneal Dialysis GI Medical History: Reports: Hx Gastroesophageal Reflux Disease, Hx Hiatal Hernia, Hx Ulcer Psychiatric Medical History: Reports: Hx Anxiety, Hx Depression Past Surgical History: Reports: Hx Abdominal Surgery - HERNIA, Hx Appendectomy, Hx Herniorrhaphy, Hx Orthopedic Surgery - knee surgery x4, back surgery - Immunizations Immunizations up to date: Yes Hx Diphtheria, Pertussis, Tetanus Vaccination: No Hx Pneumococcal Vaccination: 07/25/08 Review of Systems - Review of Systems Notes: Constitutional: Negative for fever. HENT: Negative for sore throat. Eyes: Negative for visual changes. Cardiovascular: Negative for chest pain. Respiratory: Negative for shortness of breath. Gastrointestinal: Positive for abdominal cramping and diarrhea Genitourinary: Negative for dysuria. Musculoskeletal: Negative for back pain. Skin: Negative for rash. Neurological: Negative for headaches, weakness or numbness. 10 point ROS negative except as marked above and in HPI. Physical Exam - Vital signs Vitals: Temp 97.4 F 09/24/16 20:10 Interpretation: Normal Notes: PHYSICAL EXAMINATION: GENERAL: Pale appears uncomfortable but in no acute distress HEAD: Atraumatic, normocephalic. EYES: Pupils equal round and reactive to light, extraocular movements intact, sclera anicteric, conjunctiva are normal. ENT: nares patent, oropharynx clear without exudates. Dry mucous membranes. NECK: Normal range of motion, supple without lymphadenopathy LUNGS: Breath sounds clear to auscultation bilaterally and equal. No wheezes rales or rhonchi. HEART: Regular rate and rhythm without murmurs ABDOMEN: Soft, nontender, normoactive bowel sounds. No guarding, no rebound. No masses appreciated. EXTREMITIES: Normal range of motion, no pitting or edema. No cyanosis. NEUROLOGICAL: No focal neurological deficits. Moves all extremities spontaneously and on command. PSYCH: Moderately anxious SKIN: Warm, Dry, normal turgor, no rashes or lesions noted. Course - Re-evaluation Re-evalutation: 09/24/16 21:14 Patient presents with persistent diarrhea and symptoms consistent with chronic opiate withdrawal after having been on chronic narcotics at very high doses for 17 years and then being abruptly cut off. His laboratories today show severe hyponatremia consistent with persistent diarrhea. Likewise his initial blood pressure was in the 80 systolic and has normalized after administration of IV fluids. Will put on maintenance fluids at this time so as to not correct the sodium too quickly. He will require admission given the degree of hyponatremia and the symptomatic nature of this hyponatremia. Regarding patient's fall today :Presentation of head trauma in an otherwise well-appearing patient. No focal neurologic deficits on exam, no evidence of basilar skull fracture on exam without evidence of hemotympanum, raccoon eyes, or periauricular hematoma. No papilledema. Patient is not on anticoagulation. GCS is 15. No loss of consciousness. No episodes of vomiting. However, given his age will obtain a CT of the head to further exclude intracranial hemorrhage. 09/25/16 00:47 CT head unremarkable. BP remains improved. I have discussed this case with who will admit. - Vital Signs Vital signs: Temp Pulse Resp BP Pulse Ox 97.4 F 74 19 137/52 H 97 09/24/16 20:10 09/24/16 22:35 09/24/16 22:31 09/24/16 22:35 09/24/16 22:31 - Laboratory Result Diagrams: 09/24/16 20:23 09/24/16 20:23 Laboratory results interpreted by me: 09/24/16 09/24/16 09/24/16 20:23 20:23 23:45 RBC 3.84 L Hgb 11.2 L Hct 31.6 L Sodium 118.6 L* Chloride 88 L Carbon Dioxide 18 L Glucose 111 H Urine Ketones 20 H - Diagnostic Test Radiology reviewed: Reports reviewed - EKG Interpretation by Me Additional EKG results interpreted by me: 09/25/16 00:48 NSR. Rate 66. LVH with repol abnormalities. No ST elevations or depressions. QTC is 491. Discharge - Discharge Clinical Impression: Hyponatremia Diarrhea Qualifiers: Diarrhea type: unspecified type Qualified Code(s): R19.7 - Diarrhea, unspecified Condition: Fair Disposition: ADMITTED INPATIENT Admitting Provider: [facility] Admitted: [facility]
[2016-09-24] MEDS ORDERED: KETOROLAC TROMETHAMINE INJ/PF 30 MG/1 ML SDV IV ONE (22:00)
[2016-09-24] MEDS ORDERED: LIDOCAINE 5% (700 MG) TRANSDERMAL ADH..PATCH TP ONE (22:00)
[2016-09-24] MEDS ORDERED: LIDOCAINE 5% (700 MG) TRANSDERMAL ADH..PATCH ONE (22:18)
[2016-09-25 00:02] LABS: APPEARANCE,URINE SLIGHTLY-CLOUDY; BILIRUBIN,URINE NEGATIVE (NEGATIVE); GLUCOSE, URINE NEGATIVE (NEGATIVE); KETONES,URINE 20 mg/dL (NEGATIVE); LEUKOCYTE ESTERASE,URINE NEGATIVE (NEGATIVE); NITRITE,URINE NEGATIVE (NEGATIVE); PROTEIN,URINE NEGATIVE (NEGATIVE); UROBILINOGEN,URINE NEGATIVE mg/dL (<2.0)
[2016-09-25 00:48] LABS: ADD ON TESTING BLD IN LAB ACKNOWLEDGE
[2016-09-25 01:11] LABS: LIPASE 190.5 U/L (23-300)
[2016-09-25] MEDS ORDERED: ACETAMINOPHEN 325 MG TABLET PO ONE (01:15)
[2016-09-25 01:51] LABS: CREATINE KINASE MB 0.79 ng/mL (<4.55)
[2016-09-25 01:53] LABS: TROPONIN I < 0.012 ng/mL
[2016-09-25 02:00] LABS: ARTERIAL BLOOD BASE EXCESS -4.7 mmol/L; ARTERIAL BLOOD O2 SATURATION 98.1 % (94-98)
[2016-09-25 02:04] LABS: MAGNESIUM 1.8 mg/dL (1.6-2.3); PHOSPHORUS 4.2 mg/dL (2.5-4.5)
[2016-09-25] MEDS ORDERED: CLONIDINE HCL 0.2 MG TABLET PO SCH (02:30)
[2016-09-25 02:55] LABS: URINE BARBITURATES SCREEN UNCONFIRMED POSITIVE; URINE METHADONE SCREEN NEGATIVE; URINE OPIATES LOW NEGATIVE; URINE PHENCYCLIDINE SCREEN NEGATIVE
[2016-09-25 03:03] VITALS: BP 164/61
[2016-09-25 03:07] LABS: ANION GAP 10 (5-19); BLOOD UREA NITROGEN 9 mg/dL (7-20); CALCIUM 9.2 mg/dL (8.4-10.2); CARBON DIOXIDE 17 mmol/L (22-30); CHLORIDE 93 mmol/L (98-107); CREATININE RESULT 1.13 mg/dL (0.52-1.25); GLUCOSE 96 mg/dL (75-110); POTASSIUM 4.1 mmol/L (3.6-5.0)
[2016-09-25] MEDS ORDERED: ACETAMINOPHEN 325 MG TABLET PO PRN (03:24)
[2016-09-25] MEDS ORDERED: IPRATROPIUM/ALBUTEROL 0.5-2.5 MG/3 ML AMPUL NEB PRN (03:24)
[2016-09-25] MEDS ORDERED: ONDANSETRON HCL INJ/PF 4 MG/2 ML SDV IV PRN (03:24)
[2016-09-25 03:30] LABS: SODIUM 120.4 mmol/L (137-145)
[2016-09-25] MEDS ORDERED: ARIPIPRAZOLE 5 MG TABLET PO ONE (03:41)
[2016-09-25] MEDS ORDERED: DICYCLOMINE HCL 20 MG TABLET PO SCH (04:30)
[2016-09-25] MEDS ORDERED: HEPARIN SOD (PORCINE) 5,000 UNIT/ML 1 ML SYRINGE SUBCUT SCH (06:00)
--- NOTE | 2016-09-25 08:25 | EKG REPORT ---
SEVERITY:- ABNORMAL ECG - SINUS RHYTHM LVH WITH IVCD AND SECONDARY REPOL ABNRM : Confirmed by: Adan Bray MD 25-Sep-2016 08:24:27
--- NOTE | 2016-10-06 19:50 | H&P/Discharge Summary ---
Discharge Summary Admission Date/PCP: 09/25/16 03:24 Primary polydipsia - Discharge Diagnosis (1) Primary polydipsia Is this a current diagnosis for this admission?: YesSummary: Patient presents with hyponatremia stating he drinks 9 16 ounce bottles of water each day bottles in addition to several caffeinated beverages. Resulting in hyponatremia consistent with lab results. Patient receives education and fluid restriction however the patient leaves AGAINST MEDICAL ADVICE prior to chemical results of significant improvement. (2) Diarrhea Is this a current diagnosis for this admission?: YesSummary: Patient states diarrhea with unclear motivation, without consistent lab findings or episodes while in hospital (3) Hyponatremia Is this a current diagnosis for this admission?: YesSummary: Please see primary polydipsia (4) PTSD (post-traumatic stress disorder) Is this a current diagnosis for this admission?: YesSummary: Continue outpatient regiment with recommended follow-up of mental health however patient leaves AMA, denying homicidal or suicidal ideation. Home Medications: Amlodipine Besylate 10 mg PO DAILY 01/08/15 Atorvastatin Calcium 20 mg PO QHS 01/08/15 Clonidine HCl [Catapres 0.2 mg Tablet] 0.2 mg PO Q12 01/08/15 Esomeprazole Magnesium [Nexium 24Hr] 22.3 mg PO DAILY 01/08/15 Finasteride 5 mg PO DAILY 01/08/15 Lorazepam 2 mg PO BID 01/08/15 Metoprolol Tartrate [Lopressor 25 mg Tablet] 100 mg PO Q12 01/08/15 Promethazine HCl 25 mg PO Q8H PRN 01/08/15 Hydralazine HCl 09/25/16 Tizanidine HCl [Zanaflex] 8 mg PO TID 09/25/16 Allergies/Adverse Reactions: meperidine HCl [From Demerol] Allergy (Mild, Verified 08/21/16 15:24) Hives History of Present Illness Admission Date/PCP: 09/25/16 03:24 Patient complains of: Fall History of Present Illness: BREEZY STARKEY is a 71 year old male with a past medical history of opiate dependence with recent inpatient hospitalization complicated by posttraumatic stress disorder and complains of fall without injury. In the emergency room his found to have hyponatremia and lab suggesting volume overload consistent with his given history of primary polydipsia consuming 9 16 ounce bottles of water per day in addition to several caffeinated beverages. Patient is referred to the hospitalist without nausea vomiting or altered mental status with a plan to place on fluid restriction and education. However the patient leaves AGAINST MEDICAL ADVICE Past Medical History Cardiac Medical History: Reports: Hyperlipidema, Hypertension Pulmonary Medical History: Reports: Pneumonia GI Medical History: Reports: Gastroesophageal Reflux Disease, Hiatal Hernia Psychiatric Medical History: Reports: Depression, Other - Opiate abuse Past Surgical History Past Surgical History: Reports: Appendectomy, Herniorrhaphy, Orthopedic Surgery - knee surgery x4, back surgery Social History Information Source: Patient Lives with: Spouse/Significant other Smoking Status: Never Smoker Frequency of Alcohol Use: Occasional Hx Recreational Drug Use: No Drugs: Methadone Hx Prescription Drug Abuse: Yes - Advance Directive Resuscitation Status: Full Code Family History Family History: Hypertension Parental Family History Reviewed: Yes Children Family History Reviewed: Yes Sibling(s) Family History Reviewed.: Yes Review of Systems ROS unobtainable: Other - Patient response is felt to be unreliable given answering affirmatively to all questions complicated by mental health issues and opiate seeking behavior Physical Exam Vital Signs: Temp Pulse Resp BP Pulse Ox 97.9 F 96 18 164/61 H 100 09/25/16 03:42 09/25/16 03:42 09/25/16 03:42 09/25/16 03:02 09/25/16 03:02 General appearance: PRESENT: no acute distress, well-developed, well-nourished Head exam: PRESENT: atraumatic, normocephalic Eye exam: PRESENT: conjunctiva pink, EOMI, PERRLA. ABSENT: scleral icterus Ear exam: PRESENT: normal external ear exam Mouth exam: PRESENT: moist, tongue midline Neck exam: ABSENT: carotid bruit, JVD, lymphadenopathy, thyromegaly Respiratory exam: PRESENT: clear to auscultation marge. ABSENT: rales, rhonchi, wheezes Cardiovascular exam: PRESENT: RRR. ABSENT: diastolic murmur, rubs, systolic murmur Pulses: PRESENT: normal dorsalis pedis pul Vascular exam: PRESENT: normal capillary refill GI/Abdominal exam: PRESENT: normal bowel sounds, soft. ABSENT: distended, guarding, mass, organolmegaly, rebound, tenderness Rectal exam: PRESENT: deferred Extremities exam: PRESENT: full ROM. ABSENT: calf tenderness, clubbing, pedal edema Neurological exam: PRESENT: alert, awake, oriented to person, oriented to place , oriented to time, oriented to situation, CN II-XII grossly intact. ABSENT: motor sensory deficit Psychiatric exam: PRESENT: appropriate affect, normal mood. ABSENT: homicidal ideation, suicidal ideation Skin exam: PRESENT: dry, intact, warm. ABSENT: cyanosis, rash Results Laboratory Results: 09/25/16 08:15 Impressions: Head CT 09/24/16 21:16 IMPRESSION: No acute intracranial findings. Chest X-Ray 09/25/16 00:00 IMPRESSION: No acute radiographic finding in the chest. Assessment & Plan - Time Time Spent: 50 to 70 Minutes
== END 2016-09-25 08:50 | disposition left against medical advice (07) | DRG 641 ==
LOC: ER 20:02 → EH 09-25 01:24 → UNDOADMIN 09-25 01:24 → 3W 09-25 03:18 → EH 09-25 03:18 → 3W 09-25 03:24
PROVIDERS: ADMIT Internal Medicine; ATTEND Internal Medicine
PROC: 3E0F73Z Introduction of Anti-inflammatory into Respiratory Tract, Via Natural or Artificial Opening (ICD-10-PCS; principal; 2016-09-25)
DX: E87.1 Hypo-osmolality and hyponatremia (principal); F11.23 Opioid dependence with withdrawal; E78.00 Pure hypercholesterolemia, unspecified; I10 Essential (primary) hypertension; N40.0 Benign prostatic hyperplasia without lower urinary tract symptoms; K21.9 Gastro-esophageal reflux disease without esophagitis; F32.9 Major depressive disorder, single episode, unspecified; F41.9 Anxiety disorder, unspecified; T40.2X5A Adverse effect of other opioids, initial encounter; R19.7 Diarrhea, unspecified; F43.10 Post-traumatic stress disorder, unspecified; W19.XXXA Unspecified fall, initial encounter; Z79.899 Other long term (current) drug therapy; Z88.6 Allergy status to analgesic agent; Z82.49 Family history of ischemic heart disease and other diseases of the circulatory system
CPT/HCPCS: 36415; 36600; 70450; 71020; 80048; 80053; 80307; 81001; 82533; 82550; 82553; 82803; 83690; 83735; 83880; 83930; 83935; 84100; 84300; 84443; 84478; 84484; 85025; 93005; 93010; 96361; 96374; 96375; 99285; J1885; J2405; J7030

== ENCOUNTER 2017-11-16 10:27 | Emergency (ER) | payer OTHER, MEDICARE ==
[2017-11-16] MEDS ORDERED: HYDROMORPHONE HCL INJ/PF 2 MG/ML AMPULE IV ONE (10:42)
--- NOTE | 2017-11-16 10:59 | ER Document Report ---
ED General - General Chief Complaint: Fall Stated Complaint: FALL/BACK PAIN Time Seen by Provider: 11/16/17 10:35 Mode of Arrival: Ambulatory Information source: Patient Notes: 72-year-old male history of chronic back pain who is seen by pain specialist were then degenerative disc disease presents with complaints of low back pain after a mechanical fall. Patient notes he hit some padded stairs, denies any fevers or chills denies any abdominal pain. Patient admits to lumbar pain, denies any neurological deficits TRAVEL OUTSIDE OF THE [place] IN LAST 30 DAYS: No - HPI Onset: Just prior to arrival Onset/Duration: Sudden Quality of pain: Achy Severity: Mild Pain Level: 1 Associated symptoms: Body/muscle aches Exacerbated by: Movement Relieved by: Denies Similar symptoms previously: No Recently seen / treated by doctor: No - Related Data Allergies/Adverse Reactions: meperidine HCl [From Demerol] Allergy (Mild, Verified 11/16/17 10:42) Hives Past Medical History - Social History Smoking Status: Never Smoker Cigarette use (# per day): No Chew tobacco use (# tins/day): No Smoking Education Provided: No Frequency of alcohol use: Social Drug Abuse: None Family History: Reviewed & Not Pertinent Patient has suicidal ideation: No Patient has homicidal ideation: No - Past Medical History Cardiac Medical History: Reports: Hx Hypercholesterolemia, Hx Hypertension Pulmonary Medical History: Reports: Hx Pneumonia Renal/ Medical History: Reports: Hx Benign Prostatic Hyperplasia, Hx Renal Insufficiency. Denies: Hx Peritoneal Dialysis GI Medical History: Reports: Hx Gastroesophageal Reflux Disease, Hx Hiatal Hernia, Hx Ulcer Psychiatric Medical History: Reports: Hx Anxiety, Hx Depression Past Surgical History: Reports: Hx Abdominal Surgery - HERNIA, Hx Appendectomy, Hx Herniorrhaphy, Hx Orthopedic Surgery - knee surgery x4, back surgery - Immunizations Immunizations up to date: Yes Hx Diphtheria, Pertussis, Tetanus Vaccination: No Hx Pneumococcal Vaccination: 07/25/08 Review of Systems - Review of Systems Notes: REVIEW OF SYSTEMS: CONSTITUTIONAL : Denies fever, chills, or sweats. Denies recent illness. EENT: Denies eye, ear, throat, or mouth pain or symptoms. Denies nasal or sinus congestion or discharge. Denies throat, tongue, or mouth swelling or difficulty swallowing. CARDIOVASCULAR: Denies chest pain. Denies palpitations or racing or irregular heart beat. Denies ankle edema. RESPIRATORY: Denies cough, cold, or chest congestion. Denies shortness of breath, difficulty breathing, or wheezing. GASTROINTESTINAL: Denies abdominal pain or distention. Denies nausea, vomiting , or diarrhea. Denies blood in vomitus, stools, or per rectum. Denies black, tarry stools. Denies constipation. GENITOURINARY: Denies difficulty urinating, painful urination, burning, frequency, blood in urine, or discharge. MUSCULOSKELETAL: Admits to low back pain SKIN: Denies rash, lesions or sores. HEMATOLOGIC : Denies easy bruising or bleeding. LYMPHATIC: Denies swollen, enlarged glands. NEUROLOGICAL: Denies confusion or altered mental status. Denies passing out or loss of consciousness. Denies dizziness or lightheadedness. Denies headache. Denies weakness or paralysis or loss of use of either side. Denies problems with gait or speech. Denies sensory loss, numbness, or tingling. Denies seizures. PSYCHIATRIC: Denies anxiety or stress. Denies depression, suicidal ideation, or homicidal ideation. ALL OTHER SYSTEMS REVIEWED AND NEGATIVE. Dictation was performed using [employer] voice recognition software PHYSICAL EXAMINATION: GENERAL: Well-appearing, well-nourished and in no acute distress. HEAD: Atraumatic, normocephalic. EYES: Pupils equal round and reactive to light, extraocular movements intact, sclera anicteric, conjunctiva are normal. ENT: Nares patent, oropharynx clear without exudates. Moist mucous membranes. NECK: Normal range of motion, supple without lymphadenopathy LUNGS: Breath sounds clear to auscultation bilaterally and equal. No wheezes rales or rhonchi. HEART: Regular rate and rhythm without murmurs ABDOMEN: Soft, nontender, nondistended abdomen. No guarding, no rebound. No masses appreciated. Musculoskeletal: Normal range of motion, no pitting or edema. No cyanosis. Tenderness upon palpation of the L4 spine NEUROLOGICAL: Cranial nerves grossly intact. Normal speech, normal gait. Normal sensory, motor exams PSYCH: Normal mood, normal affect. SKIN: Skin abrasions from L5-T4 region worse on the left flank Physical Exam - Vital signs Vitals: Temp Pulse Resp BP Pulse Ox 98.0 F 72 18 149/68 H 97 11/16/17 10:42 11/16/17 10:42 11/16/17 10:42 11/16/17 10:42 11/16/17 10:42 Course - Re-evaluation Re-evalutation: 11/16/17 10:59 Patient's presentation is most consistent with a mechanical fall with concerns of injury to the spines 11/16/17 14:17 CT notes no acute abnormality, patient will be given prescription for Valium given does help with muscle spasms, patient must follow-up with his own pain specialist regarding his pain control at home After performing a Medical Screening Examination, I estimate there is LOW risk for EXPANDING OR RUPTURED ABDOMINAL AORTIC ANEURYSM, CAUDA EQUINA SYNDROME, EPIDURAL MASS LESION, or HERNIATED DISK CAUSING SEVERE SPINAL STENOSIS, thus I consider the discharge disposition reasonable. I have reevaluated this patient multiple times and no significant life threatening changes are noted. The patient and I have discussed the diagnosis and risks, and we agree with discharging home and close follow-up. We also discussed returning to the Emergency Department immediately if new or worsening symptoms occur with the understanding that symptoms and presentations can change. We have discussed the symptoms which are most concerning (e.g., saddle anesthesia, urinary or bowel incontinence or retention, changing or worsening pain) that necessitate immediate return. - Vital Signs Vital signs: Temp Pulse Resp BP Pulse Ox 98.0 F 72 18 149/68 H 97 11/16/17 10:42 11/16/17 10:42 11/16/17 10:42 11/16/17 10:42 11/16/17 10:42 - Laboratory Result Diagrams: 11/16/17 10:55 11/16/17 10:55 Laboratory results interpreted by me: 11/16/17 11/16/17 10:55 10:55 RBC 3.83 L Hgb 11.7 L Hct 33.3 L Sodium 134.1 L Total Protein 5.9 L Albumin 3.4 L - Diagnostic Test Radiology reviewed: Image reviewed - CT abdomen pelvis notes no acute abnormality patient stable, Reports reviewed Discharge - Discharge Clinical Impression: Fall Qualifiers: Encounter type: initial encounter Qualified Code(s): W19.XXXA - Unspecified fall, initial encounter Back pain Qualifiers: Back pain location: low back pain Chronicity: acute Back pain laterality: left Sciatica presence: without sciatica Qualified Code(s): M54.5 - Low back pain Contusion Qualifiers: Encounter type: initial encounter Contusion area: lower back Qualified Code(s) : S30.0XXA - Contusion of lower back and pelvis, initial encounter Condition: Stable Disposition: HOME, SELF-CARE Instructions: Low Back Pain ([facility]) Additional Instructions: Please follow-up with your pain specialist regarding your low back injury, return immediately for any other concerns Prescriptions: Diazepam [Valium 5 mg Tablet] 5 mg PO QIDP PRN #20 tablet PRN Reason: Referrals: ALICIA MADERA PA-C [Primary Care Provider] - Follow up as needed
[2017-11-16 11:23] LABS: ABSOLUTE EOSINOPHILS # (AUTO) 0.1 10^3/uL (0.0-0.6); ABSOLUTE LYMPHOCYTES (AUTO) 0.9 10^3/uL (0.5-4.7); ABSOLUTE MONOCYTES (AUTO) 0.4 10^3/uL (0.1-1.4); ABSOLUTE NEUT (AUTO) 3.3 10^3/uL (1.7-8.2); BASOPHILS % (AUTO) 0.4 % (0-2); HEMATOCRIT 33.3 % (37.9-51.0); HEMOGLOBIN 11.7 g/dL (13.5-17.0); LYMPHOCYTES % (AUTO) 18.5 % (13-45); MEAN CORPUSCULAR HEMOGLOBIN 30.4 pg (27.0-33.4); MEAN CORPUSCULAR HGB CONC 34.9 g/dL (32.0-36.0); MEAN CORPUSCULAR VOLUME 87 fl (80-97); MONOCYTES % (AUTO) 7.7 % (3-13); PLATELET COUNT 180 10^3/uL (150-450); RED BLOOD COUNT 3.83 10^6/uL (4.35-5.55); SEGMENTED NEUTROPHILS % (AUTO) 71.4 % (42-78); TOTAL CELLS COUNTED % (AUTO) 100 %; WHITE BLOOD COUNT 4.7 10^3/uL (4.0-10.5)
[2017-11-16 11:38] LABS: ALANINE AMINOTRANSFERASE 22 U/L (21-72); ALBUMIN 3.4 g/dL (3.5-5.0); ALKALINE PHOSPHATASE 54 U/L (38-126); ANION GAP 10 (5-19); ASPARTATE AMINO TRANSFERASE 26 U/L (17-59); BILIRUBIN,DIRECT 0.3 mg/dL (0.0-0.4); BILIRUBIN,TOTAL 0.5 mg/dL (0.2-1.3); BLOOD UREA NITROGEN 20 mg/dL (7-20); CALCIUM 8.5 mg/dL (8.4-10.2); CARBON DIOXIDE 22 mmol/L (22-30); CHLORIDE 102 mmol/L (98-107); GLUCOSE 102 mg/dL (75-110); POTASSIUM 4.3 mmol/L (3.6-5.0); SODIUM 134.1 mmol/L (137-145); TOTAL PROTEIN 5.9 g/dL (6.3-8.2)
[2017-11-16] MEDS ORDERED: HALOPERIDOL LACTATE INJ 5 MG/1 ML VIAL IV ONE (11:44)
[2017-11-16] MEDS ORDERED: DIPHENHYDRAMINE HCL 50 MG/ML VIAL IV ONE (11:44)
[2017-11-16] MEDS ORDERED: LORAZEPAM INJ 2 MG/1 ML VIAL IV ONE (11:44)
[2017-11-16] MEDS ORDERED: FENTANYL CITRATE INJ/PF 100 MCG/2 ML AMPUL IV ONE (12:26)
--- NOTE | 2017-11-16 13:41 | RADIOLOGY REPORT (SQ) ---
EXAM DESCRIPTION: CT ABD/PELVIS WITH IV ONLY COMPLETED DATE/TIME: 11/16/2017 12:42 pm REASON FOR STUDY: fall , contusion back, thoracic lumbar pain COMPARISON: CT abdomen pelvis 04/20/2014, 11/24/2014, 02/08/2016 TECHNIQUE: CT scan of the abdomen and pelvis performed using helical scanning technique with dynamic intravenous contrast injection. No oral contrast. Images reviewed with lung, soft tissue, and bone windows. Reconstructed coronal and sagittal MPR images reviewed. Delayed images for evaluation of the urinary system also acquired. All images stored on PACS. All CT scanners at this facility use dose modulation, iterative reconstruction, and/or weight based d osing when appropriate to reduce radiation dose to as low as reasonably achievable (ALARA). [facility]: Dose Right [facility]: CareDose [facility]: Dose Right [facility]: Teradose 4D [facility]: Taste Guru CONTRAST TYPE AND DOSE: contrast/concentration: Isovue 370.00 mg/ml; Total Contrast Delivered: 99.0 ml; Total Saline Delivered: 72.0 ml RENAL FUNCTION: Creatinine 0.9 RADIATION DOSE: CT Rad equipment meets quality standard of care and radiation dose reduction techniq ues were employed. CTDIvol: 16.5 - 19.3 mGy. DLP: 2123 mGy-cm.. LIMITATIONS: None. FINDINGS: LOWER CHEST: No significant findings. No nodules or infiltrates. Moderate-sized hiatal he rnia LIVER: Normal size. No masses. No dilated ducts. SPLEEN: Normal size. No focal lesions. PANCREAS: No masses. No significant calcifications. No adjacent inflammation or peripancreatic fluid collections. Pancreatic duct not dilated. GALLBLADDER: No identified stones by CT criteria. No inflammatory changes to suggest cholecystitis. ADRENAL GLANDS: No significant masses or asymmetry. RIGHT KIDNEY AND URETER: No solid masses. No significant calcifications. No hydronephrosis or hyd roureter. LEFT KIDNEY AND URETER: No solid masses. No significant calcifications. No hydronephrosis or hydr oureter. AORTA AND VESSELS: No aneurysm. No dissection. At least 50% bilateral renal artery stenosis is prese nt on axial images 35-38. . RETROPERITONEUM: No retroperitoneal adenopathy, hemorrhage or masses. BOWEL AND PERITONEAL CAVITY: No masses or inflammatory changes. No free fluid or peritoneal masses. No gross bowel obstruction. No free intraperitoneal air or fluid. APPENDIX: Surgically absent with right lower quadrant clips PELVIS: No mass. No free fluid. Normal bladder. ABDOMINAL WALL: No masses. Small fat containing bilateral inguinal hernias. BONES: Chronic appearing central upper endplate depressions of L3 and L4. There is motion artifact t hrough the pelvis on the initial scanning. However, on delayed images through the lumbar spine and b judy pelvis, no acute fractures are identified. OTHER: No other significant finding. IMPRESSION: No acute changes TECHNICAL DOCUMENTATION: JOB ID: [id number] Quality ID # [id number]: Final reports with documentation of one or more dose reduction techniques (e.g., Au tomated exposure control, adjustment of the mA and/or kV according to patient size, use of iterative reconstruction technique) 2010 [employer]- All Rights Reserved Reading location - IP/workstation name: [email or web address]
[2017-11-16] MEDS ORDERED: DIAZEPAM INJ 10 MG/2 ML DISP.SYRIN IV ONE (13:52)
[2017-11-16 14:44] VITALS: BP 152/79
== END 2017-11-16 14:42 | disposition home or self-care (01) ==
LOC: ER 10:27
DX: S30.0XXA Contusion of lower back and pelvis, initial encounter (principal); S20.419A Abrasion of unspecified back wall of thorax, initial encounter; S30.811A Abrasion of abdominal wall, initial encounter; M54.5 Low back pain; W10.9XXA Fall (on) (from) unspecified stairs and steps, initial encounter; Y93.89 Activity, other specified; G89.29 Other chronic pain; I10 Essential (primary) hypertension; Z88.5 Allergy status to narcotic agent
CPT/HCPCS: 99284; 96374; 96375; 36415; 85025; 80053; 74177; J3360; J3010; J1170

== ENCOUNTER → 2017-12-11 | Outpatient (CLI) | payer MEDICARE, OTHER ==
--- NOTE | 2017-12-12 08:55 | RADIOLOGY REPORT (SQ) ---
EXAM DESCRIPTION: MRI LUMBAR SPINE WITHOUT COMPLETED DATE/TIME: 12/11/2017 2:21 pm REASON FOR STUDY: LOW BACK PAIN MULTI FALLS M54.16 RADICULOPATHY, LUMBAR REGION COMPARISON: Lumbar spine plain films 01/27/2016 CT abdomen pelvis 11/16/2017 TECHNIQUE: Sagittal and Axial imaging includes T1, T2, STIR and gradient echo sequences. Coronal T2/ HASTE imaging. LIMITATIONS: None. FINDINGS: VISUALIZED UPPER ABDOMEN: Limited evaluation. No acute or suspicious findings suggested. SEGMENTATION: No transitional anatomy. The lowest well- developed disc space is labeled L5-S1. ALIGNMENT: Anatomic. VERTEBRAE: At the T12 level, about 25% compression deformity with loss of height is present. There i s mild retropulsion of the posterosuperior corner of T12 with about 30% canal narrowing. The fractur e line is a fluid-filled pseudoarthrosis within the vertebral body, with fluid tracking into the left psoas muscle. Fluid collection in the left psoas muscle measures 2.5 x 1.5 cm in size, best shown c onnecting to the disc space on coronal images 12-15 and axial images 6-13. This most likely represen ts sterile posttraumatic change with pseudoarthrosis in the T12 vertebral body. Velasco disease relate d to the spinal tuberculosis is considered possible but less likely. This report was discussed with Dr. Zhong, 0800 hours 12/12/2017 There is a central upper endplate depression at L3 with mild reactive marrow edema adjacent to the Sc hmorl's node. Less than 25% overall loss of height of L3. At L4, 50% loss of vertebral body height is present with central upper endplate depression. There is edema paralleling the upper endplate next. Mild retropulsion of the posterior bony cortex of L4. BONE MARROW: Overall, there is fatty marrow replacement. Marrow edema at T12, and L4 related to comp ression deformities as above. DISC SIGNAL: Calcification/ankylosis at the intervertebral disc of T11-12, T12-L1. POSTERIOR ELEMENTS: Generally intact. No pars defect evident. HARDWARE: None in the spine. CORD AND CONUS: Normal in size and signal intensity. Conus at the L1-2 level. SOFT TISSUES: No aortic aneurysm seen. No bulky retroperitoneal adenopathy or mass. No paraspinal mas s or fluid. T11-12: At the upper edge of the field of view. No T11-12 disc level central or foraminal stenosis. T12-L1: There is mild retropulsion of the T12 vertebral body cortex at the level of pseudoarthrosis/ compression fracture. At the T12-L1 disc space proper, there is calcification are ankylosis across t he disc space. Very mild right foraminal and lateral, mild to moderate left foraminal and lateral na rrowing cause mild right and moderate to high-grade left foraminal narrowing. L1-L2: Minimal posterior disc bulge, mild bilateral facet and ligament hypertrophy. No significant c entral or foraminal encroachment. L2-L3: Mild diffuse posterior disc bulging, moderate bilateral facet and ligament hypertrophy. Borde rline central canal narrowing. Mild bilateral inferior foraminal narrowing without exiting L2 nerve root impingement. L3-L4: Broad diffuse posterior disc bulge and bony spurring with moderate bilateral facet and ligamen t hypertrophy. Moderate central canal stenosis with effacement of the CSF around the lumbar nerve ro ots on axial T2 image 29. Mild bilateral foraminal narrowing is present without exiting L3 nerve seema t impingement. L4-L5: Broad diffuse posterior disc bulging and moderate bilateral facet and ligament hypertrophy are present. There is moderate central canal stenosis with effacement of the CSF around the lumbar nerv e roots. Mild to moderate right, mild left foraminal narrowing without exiting L4 nerve root impinge ment. L5-S1: Minimal posterior disc bulging, mild bilateral facet and ligament hypertrophy. No significant central or foraminal stenosis. SACRUM: Visualized upper sacrum intact. OTHER: No other significant findings. IMPRESSION: Compression deformities at T12 and L4 which are subacute as above. TECHNICAL DOCUMENTATION: JOB ID: [id number] [employer]- All Rights Reserved Reading location - IP/workstation name: [facility]
== END ==
LOC: RAD 13:25
PROVIDERS: ATTEND Student in an Organized Health Care Education/Training Program
DX: M54.16 Radiculopathy, lumbar region (principal)
CPT/HCPCS: 72148

== ENCOUNTER → 2017-12-21 | Outpatient (CLI) | payer MEDICARE ==
[2017-12-21 11:28] LABS: APPEARANCE,URINE CLEAR; BILIRUBIN,URINE NEGATIVE (NEGATIVE); COLOR,URINE YELLOW; GLUCOSE, URINE NEGATIVE (NEGATIVE); KETONES,URINE TRACE mg/dL (NEGATIVE); LEUKOCYTE ESTERASE,URINE NEGATIVE (NEGATIVE); NITRITE,URINE NEGATIVE (NEGATIVE); PROTEIN,URINE NEGATIVE (NEGATIVE); URINE SPECIFIC GRAVITY 1.006; UROBILINOGEN,URINE NEGATIVE mg/dL (<2.0)
[2017-12-21 11:38] LABS: ABSOLUTE BASOPHILS # (AUTO) 0.1 10^3/uL (0.0-0.2); ABSOLUTE EOSINOPHILS # (AUTO) 0.1 10^3/uL (0.0-0.6); ABSOLUTE LYMPHOCYTES (AUTO) 1.3 10^3/uL (0.5-4.7); ABSOLUTE MONOCYTES (AUTO) 0.6 10^3/uL (0.1-1.4); ABSOLUTE NEUT (AUTO) 2.7 10^3/uL (1.7-8.2); BASOPHILS % (AUTO) 1.1 % (0-2); EOSINOPHILS % (AUTO) 2.4 % (0-6); HEMATOCRIT 36.7 % (37.9-51.0); LYMPHOCYTES % (AUTO) 28.3 % (13-45); MEAN CORPUSCULAR HEMOGLOBIN 29.8 pg (27.0-33.4); MEAN CORPUSCULAR HGB CONC 35.4 g/dL (32.0-36.0); MEAN CORPUSCULAR VOLUME 84 fl (80-97); PLATELET COUNT 226 10^3/uL (150-450); RED BLOOD COUNT 4.35 10^6/uL (4.35-5.55); RED CELL DISTRIBUTION WIDTH 13.5 % (11.5-14.0); SEGMENTED NEUTROPHILS % (AUTO) 56.2 % (42-78); TOTAL CELLS COUNTED % (AUTO) 100 %; WHITE BLOOD COUNT 4.8 10^3/uL (4.0-10.5)
[2017-12-21 11:40] LABS: INTERNATIONAL RATION (INR) 0.96; PROTHROMBIN TIME 13.3 SEC (11.4-15.4)
[2017-12-21 11:41] LABS: PARTIAL THROMBOPLASTIN TIME 29.1 SEC (23.5-35.8)
== END ==
LOC: OD 10:25
PROVIDERS: ATTEND Student in an Organized Health Care Education/Training Program
DX: S32.009A Unspecified fracture of unspecified lumbar vertebra, initial encounter for closed fracture (principal); X58.XXXA Exposure to other specified factors, initial encounter
CPT/HCPCS: 36415; 81001; 85025; 85610; 85730

== ENCOUNTER 2017-12-27 05:54 | Day surgery (SDC) | payer MEDICARE ==
[2017-12-26 14:13] LABS: APPEARANCE,URINE CLEAR; BILIRUBIN,URINE NEGATIVE (NEGATIVE); COLOR,URINE YELLOW; GLUCOSE, URINE NEGATIVE (NEGATIVE); KETONES,URINE NEGATIVE (NEGATIVE); LEUKOCYTE ESTERASE,URINE NEGATIVE (NEGATIVE); NITRITE,URINE NEGATIVE (NEGATIVE); PROTEIN,URINE NEGATIVE (NEGATIVE); URINE SPECIFIC GRAVITY 1.004; UROBILINOGEN,URINE NEGATIVE mg/dL (<2.0)
[2017-12-26 14:17] LABS: INTERNATIONAL RATION (INR) 0.89; PROTHROMBIN TIME 12.5 SEC (11.4-15.4)
[2017-12-26 14:18] LABS: PARTIAL THROMBOPLASTIN TIME 26.8 SEC (23.5-35.8)
[2017-12-26 14:33] LABS: HEMATOCRIT 37.3 % (37.9-51.0); HEMOGLOBIN 13.1 g/dL (13.5-17.0); MEAN CORPUSCULAR HEMOGLOBIN 29.5 pg (27.0-33.4); MEAN CORPUSCULAR HGB CONC 35.1 g/dL (32.0-36.0); MEAN CORPUSCULAR VOLUME 84 fl (80-97); PLATELET COUNT 239 10^3/uL (150-450); RED BLOOD COUNT 4.42 10^6/uL (4.35-5.55); RED CELL DISTRIBUTION WIDTH 13.9 % (11.5-14.0); WHITE BLOOD COUNT 5.6 10^3/uL (4.0-10.5)
--- NOTE | 2017-12-26 20:00 | EKG REPORT ---
SEVERITY:- ABNORMAL ECG - SINUS RHYTHM FIRST DEGREE AV BLOCK PROBABLE LEFT ATRIAL ABNORMALITY LVH WITH SECONDARY REPOLARIZATION ABNORMALITY ANTERIOR Q WAVES, POSSIBLY DUE TO LVH : Confirmed by: Lucy Barnes MD 26-Dec-2017 19:59:33
[~2017-12-27 05:54] MED LIST: CEFAZOLIN 1 GM/D5W RTU 1 GM/50 ML RTUPB IV PRN; LACTATED RINGERS 1000 ML IV PRN; LIDOCAINE 0.5% INJ-PF (5 MG/ML) 50 ML SDV SUBCUT PRN; RINGERS SOLUTION,LACTATED 1,000 ML IV PRN
[2017-12-27] MEDS ORDERED: LIDOCAINE 1% INJ-PF (10 MG/ML) 30 ML SDV ONE (06:25)
[2017-12-27] MEDS ORDERED: EPHEDRINE SULFATE INJ 50 MG/1 ML AMPULE ONE (07:09)
[2017-12-27] MEDS ORDERED: MIDAZOLAM 2 MG/2 ML INJ ONE (07:09)
[2017-12-27] MEDS ORDERED: KETAMINE HCL INJ 500 MG/10 ML VIAL ONE (07:09)
[2017-12-27] MEDS ORDERED: FENTANYL CITRATE INJ/PF 100 MCG/2 ML AMPUL ONE (07:09)
[2017-12-27] MEDS ORDERED: ACETAMINOPHEN 1,000 MG/100 ML RTUPB IV ONE (07:10)
[2017-12-27] MEDS ORDERED: PROPOFOL INJ 200 MG/20 ML VIAL IV ONE (07:10)
[2017-12-27] MEDS ORDERED: ONDANSETRON HCL INJ/PF 4 MG/2 ML SDV IV PRN (08:54)
[2017-12-27] MEDS ORDERED: PROMETHAZINE HCL INJ 25 MG/1 ML VIAL IV PRN ×2 (08:54)
[2017-12-27] MEDS ORDERED: FENTANYL CITRATE INJ/PF 100 MCG/2 ML AMPUL IV PRN ×3 (08:54)
[2017-12-27] MEDS ORDERED: DIPHENHYDRAMINE HCL 50 MG/ML VIAL IV PRN (08:54)
[2017-12-27] MEDS ORDERED: CEFAZOLIN INJ 1 GM VIAL ONE (09:44)
[2017-12-27] MEDS ORDERED: OXYCODONE HCL IR 5 MG TABLET PO PRN (09:55)
--- NOTE | 2017-12-27 10:10 | OPERATIVE REPORT E ---
Operative Report NAME: BREEZY STARKEY : 1945 AGE: 72Y DATE OF SURGERY: 12/27/2017 ROOM: PREOPERATIVE DIAGNOSIS: Vertebral compression fracture, T12 and L4. POSTOPERATIVE DIAGNOSIS: Vertebral compression fracture, T12 and L4. OPERATION: Balloon kyphoplasty, T12 and L4. SURGEON: JAELYN MENDEZ M.D. NURSES ASSISTANT: None. ANESTHESIA: MAC. COMPLICATIONS: None. PROCEDURE IN DETAIL: After obtaining informed consent advising the patient of the risks and benefits, including serious neurological injury, bleeding, infection, paralysis, allergic reaction, , and failure to adequately treat pain, he was taken to the operating room suite. He was placed comfortably in a prone position as determined by Anesthesia. He was prepped and draped. The C-arm was brought in for lateral and AP visualization and draped appropriately. Beginning at the T12 level using a right peripedicular approach, a suitable skin entry site was identified and anesthetized with 1% lidocaine with bicarb. A small incision was made and an Express trocar was then advanced under serial fluoroscopic views in AP and lateral positioning, entering in the peripedicular approach and medializing until passing into the vertebral body to be positioned medial to the medial pedicle wall. A drill was then placed and removed. 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 After the drill was removed, a balloon was placed and inflated, showing appropriate inflation. The procedure was then repeated using the left peripedicular approach at the same vertebral level in the same manner but without taking a sample. Once the balloons were adequately inflated, attention was addressed to the L4 fracture. The C-arm was repositioned slightly. The pedicle was identified and beginning with the right peripedicular approach the skin again was anesthetized in this site followed by a small incision. Again, the Express trocar was advanced into the periosteum in the peripedicular location, advanced into the pedicle and vertebral body, with care being taken not to medialize into the medial vertebral wall prior to entering the body. The drill was then advanced followed by placing the balloon and inflating it. The procedure was again repeated using the left peripedicular approach at the L4 level. When all the balloons were sufficiently inflated the cement mixture was then mixed, and using filler tubes beginning at the T12 level, filling was performed. A total of 4.8 mL of mixture was placed on both sides at the T12 level, 2.4 mL on each side. The L4 level was then filled after removing the balloons with a total of 4.6 mL with 2 mL and 2.6 mL on the left and right. After the filler tubes were all removed stylettes were placed into the trocars. The cement was allowed to harden prior to removing the trocars. The region was then cleaned. Steri-Strips and sterile dressings were placed. The patient was taken to the PACU for further postoperative care and monitoring. DICTATING PHYSICIAN: JAELYN MENDEZ M.D. [id number] PHY#: [id number] ID: [id number] JOB#: [id number] ACCT: [id number] cc:JAELYN MENDEZ M.D. > MTDD
[2017-12-27 10:31] VITALS: BP 158/73
--- NOTE | 2017-12-27 12:21 | RADIOLOGY REPORT (SQ) ---
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 FLUOROSCOPY TIME: 2.9 minutes 120 images saved to PACS. TECHNIQUE: Intra-operative images acquired during surgical procedure to evaluate progress. NUMBER OF IMAGES: 120 LIMITATIONS: None. FINDINGS: T12 and L4 kyphoplasties. IMPRESSION: IMAGE(S) OBTAINED DURING PROCEDURE. COMMENT: Quality ID 145: Final reports for procedures using fluoroscopy that document radiation exp osure indices, or exposure time and number of fluorographic images (if radiation exposure indices are not available) Please consult full operative report of the attending physician for description of the procedure. TECHNICAL DOCUMENTATION: JOB ID: [id number] [email or web address]- All Rights Reserved Reading location - IP/workstation name: [email or web address]
--- NOTE | 2017-12-27 12:21 | RADIOLOGY REPORT (SQ) ---
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 FLUOROSCOPY TIME: 2.9 minutes 120 images saved to PACS. TECHNIQUE: Intra-operative images acquired during surgical procedure to evaluate progress. NUMBER OF IMAGES: 120 LIMITATIONS: None. FINDINGS: T12 and L4 kyphoplasties. IMPRESSION: IMAGE(S) OBTAINED DURING PROCEDURE. COMMENT: Quality ID 145: Final reports for procedures using fluoroscopy that document radiation exp osure indices, or exposure time and number of fluorographic images (if radiation exposure indices are not available) Please consult full operative report of the attending physician for description of the procedure. TECHNICAL DOCUMENTATION: JOB ID: [id number] [employer]- All Rights Reserved Reading location - IP/workstation name: [email or web address]
[2017-12-27] MEDS ORDERED: METOCLOPRAMIDE HCL INJ/PF 10 MG/2 ML SDV ONE (19:44)
[2017-12-27] MEDS ORDERED: ONDANSETRON HCL INJ/PF 4 MG/2 ML SDV ONE (19:44)
[2017-12-27] MEDS ORDERED: DEXAMETHASONE SOD PHOSPHATE INJ 4 MG/1 ML VIAL ONE (19:44)
[2017-12-27] MEDS ORDERED: KETOROLAC TROMETHAMINE 60 MG/2 ML SDV ONE (19:44)
[2017-12-27] MEDS ORDERED: LIDOCAINE 2% INJ-PF (20 MG/ML) 2 ML AMPUL ONE (19:44)
[2017-12-27] MEDS ORDERED: GLYCOPYRROLATE INJ 0.4 MG/2 ML VIAL ONE (19:44)
== END 2017-12-27 11:00 | disposition home or self-care (01) ==
LOC: OROUT 05:54
PROVIDERS: ATTEND Student in an Organized Health Care Education/Training Program
DX: S32.009S Unspecified fracture of unspecified lumbar vertebra, sequela (principal); X58.XXXS Exposure to other specified factors, sequela; M54.16 Radiculopathy, lumbar region; G89.4 Chronic pain syndrome; M47.897 Other spondylosis, lumbosacral region; M54.5 Low back pain; I10 Essential (primary) hypertension; M19.90 Unspecified osteoarthritis, unspecified site; Z79.01 Long term (current) use of anticoagulants; Z79.891 Long term (current) use of opiate analgesic; Z79.899 Other long term (current) drug therapy
CPT/HCPCS: 22513; 22515; 93005; 36415; 87070; 87205; 87206; 87116; 85027; 85610; 85730; 87075; 81001; 87015; 72080; 93010; Q9966; J2250; J0690 ×2; J1100; J1885; J3010; J3490 ×3; J2765; J2405; J2704; J0131; 1936

== ENCOUNTER 2018-05-20 23:56 | Emergency (ER) | payer OTHER, MEDICARE ==
--- NOTE | 2018-05-21 01:07 | ER Document Report ---
ED General - General Mode of Arrival: Ambulatory Information source: Patient TRAVEL OUTSIDE OF THE [place] IN LAST 30 DAYS: No <MOLINA FARIAS - Last Filed: 05/21/18 02:49> <RUPAL CM - Last Filed: 05/21/18 04:47> - General Chief Complaint: Flu Symptoms Stated Complaint: FLU-LIKE SYMPTOMS Time Seen by Provider: 05/21/18 00:50 Notes: Patient is a 72-year-old male with a 2-week history of congestion, which goes away when he is walking around and standing. For the past 3 days he has been coughing and tonight he started to have body aches, chills, and the feeling of being overly hot. He states he has been taking Afrin for the past 2 weeks, but ran out and started Flonase. He has been taking the Flonase for the past 4 days with no relief. He has a history of IgG autoimmune deficiency and pneumonia, in which he was hospitalized. He is up-to-date on his pneumococcal and influenza vaccines. (MOLINA FARIAS) - Related Data Allergies/Adverse Reactions: meperidine HCl [From Demerol] Allergy (Mild, Verified 05/21/18 01:29) Hives Past Medical History - General Information source: Patient - Social History Smoking Status: Unknown if Ever Smoked Family History: Reviewed & Not Pertinent - Past Medical History Cardiac Medical History: Reports: Hx Hypercholesterolemia, Hx Hypertension Denies: Hx Coronary Artery Disease, Hx Heart Attack Pulmonary Medical History: Reports: Hx Pneumonia Denies: Hx Asthma, Hx Bronchitis, Hx COPD Neurological Medical History: Denies: Hx Cerebrovascular Accident, Hx Seizures Renal/ Medical History: Reports: Hx Benign Prostatic Hyperplasia, Hx Renal Insufficiency. Denies: Hx Peritoneal Dialysis GI Medical History: Reports: Hx Gastroesophageal Reflux Disease, Hx Hiatal Hernia, Hx Ulcer Musculoskeletal Medical History: Denies Hx Arthritis Psychiatric Medical History: Reports: Hx Anxiety, Hx Depression Past Surgical History: Reports: Hx Abdominal Surgery - HERNIA, Hx Appendectomy, Hx Herniorrhaphy, Hx Orthopedic Surgery - knee surgery x4, back surgery - Immunizations Immunizations up to date: Yes Hx Diphtheria, Pertussis, Tetanus Vaccination: No Hx Pneumococcal Vaccination: 07/25/08 <MOLINA FARIAS - Last Filed: 05/21/18 02:49> Review of Systems <MOLINA FARIAS - Last Filed: 05/21/18 02:49> <JOSHUA CMIAN - Last Filed: 05/21/18 04:47> - Review of Systems Notes: REVIEW OF SYSTEMS: CONSTITUTIONAL : Positive for body aches, chills. EENT: Positive for nasal gesturing. Denies eye, ear, throat, or mouth pain or symptoms. CARDIOVASCULAR: Denies chest pain. RESPIRATORY: Denies cough, cold, or chest congestion. Denies shortness of breath, difficulty breathing, or wheezing. GASTROINTESTINAL: Denies abdominal pain. Denies nausea, vomiting, or diarrhea. Denies constipation. Last BM: MUSCULOSKELETAL: Denies neck or back pain or joint pain or swelling. SKIN: Denies rash or skin lesions. HEMATOLOGIC : Denies easy bruising or bleeding. LYMPHATIC: Denies swollen, enlarged glands. NEUROLOGICAL: Denies altered mental status or loss of consciousness. Denies headache. Denies weakness or paralysis or loss of use of either side. Denies problems with gait or speech. Denies sensory or motor loss. PSYCHIATRIC: Denies anxiety or stress or depression. ALL OTHER SYSTEMS REVIEWED AND NEGATIVE. (MOLINA FARIAS) Physical Exam <MOLINA FARIAS - Last Filed: 05/21/18 02:49> <RUPAL CM - Last Filed: 05/21/18 04:47> - Vital signs Vitals: Temp Pulse Resp BP Pulse Ox 97.9 F 87 16 150/63 H 98 05/21/18 00:47 05/21/18 00:47 05/21/18 00:47 05/21/18 00:47 05/21/18 00:47 - Notes Notes: PHYSICAL EXAMINATION: GENERAL: Well-appearing, well-nourished and in no acute distress. HEAD: Atraumatic, normocephalic. EYES: Pupils equal round and reactive to light, extraocular movements intact, sclera anicteric, conjunctiva are normal. ENT: Clear nasal drainage, oropharynx clear without exudates. Moist mucous membranes. NECK: Normal range of motion, supple without lymphadenopathy LUNGS: Breath sounds clear to auscultation bilaterally and equal. No wheezes rales or rhonchi. HEART: Regular rate and rhythm without murmurs ABDOMEN: Soft, nontender, normoactive bowel sounds. No guarding, no rebound. No masses appreciated. EXTREMITIES: Normal range of motion, no pitting or edema. No cyanosis. NEUROLOGICAL: No focal neurological deficits. Moves all extremities spontaneously and on command. PSYCH: Normal mood, normal affect. SKIN: Warm, Dry, normal turgor, no rashes or lesions noted. (JARRETTMOLINA) Course - Laboratory Result Diagrams: 05/21/18 01:35 <JARRETTMOLINA - Last Filed: 05/21/18 02:49> - Laboratory Result Diagrams: 05/21/18 01:35 <RUPAL CM - Last Filed: 05/21/18 04:47> - Re-evaluation Re-evalutation: 05/21/18 01:00 Patient is worried about his IgG levels and has requested that I check them. I have explained to him that checking his IgG levels in the emergency department is unnecessary at this time. I explained to him that his gas engine repairer will be the best person to check his IgG levels. 05/21/18 02:17 After reviewing patient's chest x-ray and laboratory studies, patient does not have pneumonia, but due to the patient's symptoms and immunodeficiency, I have offered him doxycycline. He states that his gas engine repairer started him on doxycycline and his first dose will be tomorrow. He has been alternating taking Augmentin and levofloxacin. I have offered to contact his gas engine repairer to determine whether or not an IgG level is necessary. The patient stated he will make an appointment on Tuesday to see his gas engine repairer. Patient's laboratories are unremarkable at this time. His flu tests are negative. He is currently taking cetirizine and Flonase I have advised him to continue those medications. Verbal discharge instructions were given and patient verbalized understanding. Patient is ready for discharge. (MOLINA FARIAS) 05/21/18 04:44 Mrs. Farias, Nurse practitioner, approached me about if its okay not to check the patient's IGg. I informed her that some people with immunosupression will require checking of their levels and therefore she should contact the patient's gas engine repairer to see which levels the patient requires to have checked. She says she went to the patient with this question and the patient preferred to follow-up with his gas engine repairer and have levels checked and requested discharge home. (RUPAL CM) - Vital Signs Vital signs: Temp Pulse Resp BP Pulse Ox 97.4 F 87 18 154/80 H 100 05/21/18 02:59 05/21/18 02:59 05/21/18 02:59 05/21/18 02:59 05/21/18 02:59 - Laboratory Laboratory results interpreted by me: 05/21/18 01:35 RBC 4.23 L Hgb 12.5 L Hct 35.5 L Discharge <JARRETTBLAISEMOLINA M - Last Filed: 05/21/18 02:49> <RUPAL CM - Last Filed: 05/21/18 04:47> - Discharge Clinical Impression: Viral infection Condition: Stable Disposition: HOME, SELF-CARE Additional Instructions: You have been seen in the emergency department for flulike symptoms. Your flu test came back negative and your chest x-ray is clear. Please follow-up with your primary care provider and follow-up with [facility] for your IgG levels. Please let them know that you have been seen here in the emergency department. Please take your doxycycline as prescribed by your gas engine repairer. If you feel your symptoms are getting worse, develop shortness of breath, chest pain, or any symptoms that are worrisome to you, please return to the emergency department immediately. Referrals: ANASTASIA COOLEY MD [Primary Care Provider] - Follow up as needed
--- NOTE | 2018-05-21 01:48 | RADIOLOGY REPORT (SQ) ---
EXAM DESCRIPTION: XR CHEST 1 VIEW COMPLETED DATE/TME: 05/21/2018 01:08 CLINICAL HISTORY: 72 years, Male, cough COMPARISON: None. NUMBER OF VIEWS: One TECHNIQUE: AP view the chest LIMITATIONS: None. FINDINGS: The lungs are clear. The heart is normal in size. There is no pneumothorax or pleural effusion. There is no acute fracture IMPRESSION: No acute cardiopulmonary abnormality 2010 [employer]- All Rights Reserved
[2018-05-21 01:56] LABS: ABSOLUTE EOSINOPHILS # (AUTO) 0.1 10^3/uL (0.0-0.6); ABSOLUTE LYMPHOCYTES (AUTO) 1.3 10^3/uL (0.5-4.7); ABSOLUTE MONOCYTES (AUTO) 0.4 10^3/uL (0.1-1.4); ABSOLUTE NEUT (AUTO) 3.7 10^3/uL (1.7-8.2); BASOPHILS % (AUTO) 0.6 % (0-2); EOSINOPHILS % (AUTO) 2.5 % (0-6); HEMATOCRIT 35.5 % (37.9-51.0); HEMOGLOBIN 12.5 g/dL (13.5-17.0); LYMPHOCYTES % (AUTO) 22.7 % (13-45); MEAN CORPUSCULAR HEMOGLOBIN 29.4 pg (27.0-33.4); MEAN CORPUSCULAR HGB CONC 35.1 g/dL (32.0-36.0); MEAN CORPUSCULAR VOLUME 84 fl (80-97); MONOCYTES % (AUTO) 6.8 % (3-13); PLATELET COUNT 166 10^3/uL (150-450); RED BLOOD COUNT 4.23 10^6/uL (4.35-5.55); RED CELL DISTRIBUTION WIDTH 13.4 % (11.5-14.0); SEGMENTED NEUTROPHILS % (AUTO) 67.4 % (42-78); TOTAL CELLS COUNTED % (AUTO) 100 %; WHITE BLOOD COUNT 5.6 10^3/uL (4.0-10.5)
[2018-05-21 02:02] LABS: A TYPE INFLUENZA AG NEGATIVE (NEGATIVE)
[2018-05-21 02:03] LABS: B INFLUENZA AG NEGATIVE (NEGATIVE)
[2018-05-21 03:00] VITALS: BP 154/80
== END 2018-05-21 02:59 | disposition home or self-care (01) ==
LOC: ER 23:56
DX: B34.9 Viral infection, unspecified (principal); R05 Cough; R52 Pain, unspecified; R68.83 Chills (without fever); J34.89 Other specified disorders of nose and nasal sinuses; D80.3 Selective deficiency of immunoglobulin G [IgG] subclasses; I10 Essential (primary) hypertension; Z87.01 Personal history of pneumonia (recurrent); Z88.5 Allergy status to narcotic agent
CPT/HCPCS: 36415; 71045; 85025; 87804; 99284

== ENCOUNTER 2018-05-30 08:08 | Day surgery (SDC) | payer MEDICARE, OTHER ==
[2018-05-29 09:27] LABS: ABSOLUTE EOSINOPHILS # (AUTO) 0.2 10^3/uL (0.0-0.6); ABSOLUTE LYMPHOCYTES (AUTO) 1.8 10^3/uL (0.5-4.7); ABSOLUTE MONOCYTES (AUTO) 0.5 10^3/uL (0.1-1.4); ABSOLUTE NEUT (AUTO) 3.1 10^3/uL (1.7-8.2); BASOPHILS % (AUTO) 0.7 % (0-2); EOSINOPHILS % (AUTO) 2.9 % (0-6); HEMATOCRIT 34.4 % (37.9-51.0); HEMOGLOBIN 12.4 g/dL (13.5-17.0); LYMPHOCYTES % (AUTO) 32.4 % (13-45); MEAN CORPUSCULAR HEMOGLOBIN 30.3 pg (27.0-33.4); MEAN CORPUSCULAR HGB CONC 36.1 g/dL (32.0-36.0); MEAN CORPUSCULAR VOLUME 84 fl (80-97); MONOCYTES % (AUTO) 8.3 % (3-13); PLATELET COUNT 192 10^3/uL (150-450); RED BLOOD COUNT 4.09 10^6/uL (4.35-5.55); RED CELL DISTRIBUTION WIDTH 13.3 % (11.5-14.0); SEGMENTED NEUTROPHILS % (AUTO) 55.7 % (42-78); TOTAL CELLS COUNTED % (AUTO) 100 %; WHITE BLOOD COUNT 5.5 10^3/uL (4.0-10.5)
[2018-05-29 09:37] LABS: APPEARANCE,URINE CLEAR; BILIRUBIN,URINE NEGATIVE (NEGATIVE); COLOR,URINE YELLOW; GLUCOSE, URINE NEGATIVE (NEGATIVE); KETONES,URINE TRACE mg/dL (NEGATIVE); LEUKOCYTE ESTERASE,URINE NEGATIVE (NEGATIVE); NITRITE,URINE NEGATIVE (NEGATIVE); PROTEIN,URINE NEGATIVE (NEGATIVE); URINE SPECIFIC GRAVITY 1.014
[2018-05-29 09:39] LABS: INTERNATIONAL RATION (INR) 0.84; PROTHROMBIN TIME 11.9 SEC (11.4-15.4)
[2018-05-29 09:40] LABS: PARTIAL THROMBOPLASTIN TIME 27.6 SEC (23.5-35.8)
[~2018-05-30 08:08] MED LIST changes: +BUPIVACAINE HCL 0.25% /EPINEPHRINE INJ/PF 30 ML SDV ONE; +CEFAZOLIN 1 GM/D5W RTU 1 GM/50 ML RTUPB IV ONE; +DEXAMETHASONE SOD PHOSPHATE INJ 4 MG/1 ML VIAL ONE; +FENTANYL CITRATE INJ/PF 100 MCG/2 ML AMPUL ONE; +LIDOCAINE 1% INJ-PF (10 MG/ML) 30 ML SDV ONE; +LIDOCAINE 2% INJ-PF (20 MG/ML) 10 ML AMPUL ONE; +MIDAZOLAM 2 MG/2 ML INJ ONE; +ONDANSETRON HCL INJ/PF 4 MG/2 ML SDV ONE; +PROPOFOL INJ 200 MG/20 ML VIAL IV ONE; -RINGERS SOLUTION,LACTATED 1,000 ML IV PRN; +TRIAMCINOLONE ACETONIDE INJ 40 MG/1 ML VIAL ONE
[2018-05-30] MEDS ORDERED: DIPHENHYDRAMINE HCL 50 MG/ML VIAL IV PRN (10:24)
[2018-05-30] MEDS ORDERED: MEPERIDINE HCL/PF INJ 25 MG/1 ML DISP.SYRIN IV PRN (10:24)
[2018-05-30] MEDS ORDERED: FENTANYL CITRATE INJ/PF 100 MCG/2 ML AMPUL IV PRN ×3 (10:24)
[2018-05-30] MEDS ORDERED: PROMETHAZINE HCL INJ 25 MG/1 ML VIAL IV PRN ×2 (10:24)
[2018-05-30] MEDS ORDERED: MORPHINE SULFATE 10 MG/ML INJ IV PRN (10:24)
[2018-05-30] MEDS ORDERED: ONDANSETRON HCL INJ/PF 4 MG/2 ML SDV IV PRN (10:24)
[2018-05-30] MEDS ORDERED: PROPOFOL INJ 200 MG/20 ML VIAL IV ONE (12:16)
[2018-05-30 13:16] VITALS: BP 163/90
--- NOTE | 2018-05-30 13:48 | RADIOLOGY REPORT (SQ) ---
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 FLUOROSCOPY TIME: 6.5 minutes 9 images saved to PACS. TECHNIQUE: Intra-operative images acquired during surgical procedure to evaluate progress. NUMBER OF IMAGES: 9 LIMITATIONS: None. FINDINGS: Selected images from kyphoplasty at L4. IMPRESSION: IMAGE(S) OBTAINED DURING PROCEDURE. COMMENT: Quality ID 145: Final reports for procedures using fluoroscopy that document radiation exp osure indices, or exposure time and number of fluorographic images (if radiation exposure indices are not available) Please consult full operative report of the attending physician for description of the procedure. TECHNICAL DOCUMENTATION: JOB ID: [id number] [employer]- All Rights Reserved Reading location - IP/workstation name: [email or web address]
--- NOTE | 2018-05-30 13:48 | RADIOLOGY REPORT (SQ) ---
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 FLUOROSCOPY TIME: 6.5 minutes 9 images saved to PACS. TECHNIQUE: Intra-operative images acquired during surgical procedure to evaluate progress. NUMBER OF IMAGES: 9 LIMITATIONS: None. FINDINGS: Selected images from kyphoplasty at L4. IMPRESSION: IMAGE(S) OBTAINED DURING PROCEDURE. COMMENT: Quality ID 145: Final reports for procedures using fluoroscopy that document radiation exp osure indices, or exposure time and number of fluorographic images (if radiation exposure indices are not available) Please consult full operative report of the attending physician for description of the procedure. TECHNICAL DOCUMENTATION: JOB ID: [id number] [employer]- All Rights Reserved Reading location - IP/workstation name: [email or web address]
--- NOTE | 2018-05-30 20:06 | OPERATIVE REPORT E ---
Operative Report NAME: BREEZY STARKEY : 1945 AGE: 72Y DATE OF SURGERY: 05/30/2018 ROOM: PREOPERATIVE DIAGNOSIS: LUMBAR SPINAL STENOSIS AND NEUROGENIC CLAUDICATION AT L4-5 LEVEL. POSTOPERATIVE DIAGNOSIS: LUMBAR SPINAL STENOSIS AND NEUROGENIC CLAUDICATION AT L4-5 LEVEL. OPERATIVE PROCEDURE: Minimally invasive lumbar decompression L4-5 using bilateral approach under fluoroscopic guidance with lumbar epidural steroid injection. SURGEON: JAELYN MENDEZ M.D. PROCEDURE NOTE: After obtaining informed consent, advising the patient of risks and benefits including serious neurological injury, bleeding, infection, paralysis, aggravation of pain, infection and , allergic reaction. He was taken to the operating room and placed comfortably in the prone position. Monitors were applied per anesthesia. He was assessed visually and verbally for comfort. He was then prepped with chlorhexidine followed by sterile draping. Fluoroscopy was used to evaluate the spine and L4-5 target space was identified. Attempt was made to use an epidural needle, after anesthetizing with 1% lidocaine to enter at the midline L4-5. After appropriate loss of resistance to saline with 8, an epidurogram was performed with superior contrast spread at L4-5 without inferior spread with limitation at the L4-5 level. Beginning on the left side a small incision was made after local anesthetic of 1% lidocaine at the selected entrance level. This was then repeated on the right side at the same entrance level for an L4-5 trajectory. MILD instrumentation trocar was advanced through the small incision down to the lamia at the L4-5 level on the left. Using multiple x-ray views taken, particularly the oblique and AP to ensure satisfactory *------*. Followed by an additional local was instilled through the trocar. The bone rongeur was then utilized to remove the lamina and ligament at the level of 4-5. A tissue sculptor was then utilized for removing additional tissue. Improvement of the contrast spread was noted inferiorly. This procedure was then repeated on the right side as described above. Again, additional improvement in the contrast spread was seen at that level with superior and inferior spread at L4-5 resolving some of the spinal stenosis. With the epidural needle 80 mg of Kenalog was then inserted/injected. All instrumentation was then removed. The region was cleaned, Steri-Strips were placed, followed by sterile dressing. The patient was then taken to the PACU for further postoperative care and monitoring. DICTATING PHYSICIAN: JAELYN MENDEZ M.D. [id number] PHY#: [id number] ID: [id number] JOB#: [id number] ACCT: [id number] cc:JAELYN MENDEZ M.D. >
== END 2018-05-30 12:25 | disposition home or self-care (01) ==
LOC: OROUT 08:08
PROVIDERS: ATTEND Student in an Organized Health Care Education/Training Program
DX: M48.062 Spinal stenosis, lumbar region with neurogenic claudication (principal); Z00.6 Encounter for examination for normal comparison and control in clinical research program; M54.16 Radiculopathy, lumbar region; G89.4 Chronic pain syndrome; I10 Essential (primary) hypertension; D64.9 Anemia, unspecified; M10.9 Gout, unspecified; M19.90 Unspecified osteoarthritis, unspecified site; F41.9 Anxiety disorder, unspecified; Z79.899 Other long term (current) drug therapy
CPT/HCPCS: 0275T; 36415; 85025; 85610; 85730; 81001; 72100; Q9966; J2250; J3490 ×4; J0690; J1100; J3010; J2405; J2704; 630

== ENCOUNTER 2020-04-08 05:54 | Day surgery (SDC) | payer OTHER, MEDICARE ==
[2020-04-03 11:10] LABS: ABSOLUTE EOSINOPHILS # (AUTO) 0.3 10^3/uL (0.0-0.6); ABSOLUTE LYMPHOCYTES (AUTO) 1.4 10^3/uL (0.5-4.7); ABSOLUTE MONOCYTES (AUTO) 0.5 10^3/uL (0.1-1.4); ABSOLUTE NEUT (AUTO) 1.5 10^3/uL (1.7-8.2); EOSINOPHILS % (AUTO) 7.2 % (0-6); HEMATOCRIT 32.5 % (37.9-51.0); HEMOGLOBIN 11.3 g/dL (13.5-17.0); LYMPHOCYTES % (AUTO) 37.9 % (13-45); MEAN CORPUSCULAR HEMOGLOBIN 29.9 pg (27.0-33.4); MEAN CORPUSCULAR HGB CONC 34.7 g/dL (32.0-36.0); MEAN CORPUSCULAR VOLUME 86 fl (80-97); MONOCYTES % (AUTO) 12.7 % (3-13); PLATELET COUNT 177 10^3/uL (150-450); RED BLOOD COUNT 3.77 10^6/uL (4.35-5.55); RED CELL DISTRIBUTION WIDTH 12.8 % (11.5-14.0); SEGMENTED NEUTROPHILS % (AUTO) 41.2 % (42-78); TOTAL CELLS COUNTED % (AUTO) 100 %; WHITE BLOOD COUNT 3.6 10^3/uL (4.0-10.5)
[2020-04-03 11:14] LABS: INTERNATIONAL RATION (INR) 0.94; PROTHROMBIN TIME 12.8 SEC (11.4-15.4)
[2020-04-03 11:15] LABS: PARTIAL THROMBOPLASTIN TIME 29.8 SEC (23.5-35.8)
[2020-04-03 15:01] LABS: APPEARANCE,URINE CLEAR; BILIRUBIN,URINE NEGATIVE (NEGATIVE); COLOR,URINE STRAW; GLUCOSE, URINE NEGATIVE (NEGATIVE); KETONES,URINE NEGATIVE (NEGATIVE); LEUKOCYTE ESTERASE,URINE NEGATIVE (NEGATIVE); NITRITE,URINE NEGATIVE (NEGATIVE); PROTEIN,URINE NEGATIVE (NEGATIVE); URINE SPECIFIC GRAVITY 1.004; UROBILINOGEN,URINE NEGATIVE mg/dL (<2.0)
[~2020-04-08 05:54] MED LIST changes: -BUPIVACAINE HCL 0.25% /EPINEPHRINE INJ/PF 30 ML SDV ONE; -DEXAMETHASONE SOD PHOSPHATE INJ 4 MG/1 ML VIAL ONE; -FENTANYL CITRATE INJ/PF 100 MCG/2 ML AMPUL ONE; -LIDOCAINE 0.5% INJ-PF (5 MG/ML) 50 ML SDV SUBCUT PRN; -LIDOCAINE 1% INJ-PF (10 MG/ML) 30 ML SDV ONE; -LIDOCAINE 2% INJ-PF (20 MG/ML) 10 ML AMPUL ONE; -MIDAZOLAM 2 MG/2 ML INJ ONE; -ONDANSETRON HCL INJ/PF 4 MG/2 ML SDV ONE; -PROPOFOL INJ 200 MG/20 ML VIAL IV ONE; -TRIAMCINOLONE ACETONIDE INJ 40 MG/1 ML VIAL ONE
[2020-04-08] MEDS ORDERED: KETAMINE HCL INJ 500 MG/10 ML VIAL ONE (06:53)
[2020-04-08] MEDS ORDERED: HYDROMORPHONE HCL INJ/PF 2 MG/ML AMPULE ONE (06:53)
[2020-04-08] MEDS ORDERED: MIDAZOLAM 2 MG/2 ML INJ ONE (06:53)
[2020-04-08] MEDS ORDERED: PROPOFOL INJ 200 MG/20 ML VIAL IV ONE (06:54)
[2020-04-08] MEDS ORDERED: BUPIVACAINE HCL 0.25% /EPINEPHRINE INJ/PF 30 ML SDV ONE (07:54)
[2020-04-08] MEDS ORDERED: LIDOCAINE 1% INJ-PF (10 MG/ML) 30 ML SDV ONE (07:54)
[2020-04-08] MEDS ORDERED: TRIAMCINOLONE ACETONIDE INJ 40 MG/1 ML VIAL ONE (07:54)
[2020-04-08] MEDS ORDERED: SODIUM BICARBONATE 4.2% INJ (2.5 MEQ/5 ML) VIAL ONE (08:28)
[2020-04-08] MEDS ORDERED: CEFAZOLIN INJ 1 GM VIAL ONE (09:17)
--- NOTE | 2020-04-08 09:17 | Operative Report ---
Operative Report DATE OF SURGERY: 04/08/20 PREOPERATIVE DIAGNOSIS: Lumbar spinal stenosis with neurogenic claudication L4-5 level POSTOPERATIVE DIAGNOSIS: Same OPERATION: 1. Minimally invasive lumbar decompression at the L4-5 level under fluoroscopic guidance #2 lumbar epidural steroid injection L4-5 level SURGEON: SHELBY DELGADO ANESTHESIA: LMAC TISSUE REMOVED OR ALTERED: Epidural ligament and bone fragments from the L4 and the L5 lamina COMPLICATIONS: None ESTIMATED BLOOD LOSS: None INTRAOPERATIVE FINDINGS: Stenosis at the L4-5 level with improved contrast spread post procedure PROCEDURE: After obtaining informed consent advised the patient of the risk and benefits including serious neurological injury bleeding infection aggravation of pain paralysis allergic reaction and he was taken to the operating room placed comfortably in the prone position. Monitors were applied MAC anesthesia was administered. The patient was evaluated under fluoroscopy the L4-5 level was identified prep area was determined was then prepped with chlorhexidine with an appropriate drying time he was then draped in usual fashion ostomy was then reemployed target site L4-5 was identified galan were marked suitable entrance site over the S1-S2 region of the sacrum was identified on the right and left of bilateral approach was selected. The epidural space was also anesthetized in the midline for placement of an epidural 16-gauge needle incisions were made over the selected skin entrance site after local anesthetic was applied liberally to that as well as the periosteal and subcutaneous tissues on the right and left. Mild trocar was then advanced under fluoroscopic guidance beginning on the left side down to the level of the 445 interspace approaching the midline position. Contrast was injected through the epidural needle after successfully entering the epidural space with [id number] to saline. Contrast spread above and below the selected level multiple stenosis was identified the stylette was removed from the mild trocar local anesthetic was then instilled into the region the stabilizer was applied followed by the depth gauge. the bone ronguer was used exclusively and ligament and bone were removed successfully with improved spread of contrast. This process was then repeated on the right side with similar results upon completion of the mild procedure epidural steroid injection was performed with 40 mg of Depo of Kenalog instrumentation was removed the region was cleansed Dermabond cement was placed over the wounds followed by Steri-Strips the epidural needle insertion site was also sealed with Dermabond. Patient was then taken to the PACU for further postoperative care and monitoring. End of dictation please see that I have a copy of this note
[2020-04-08] MEDS ORDERED: OXYCODONE-ACETAMINOPHEN 5-325 MG TABLET PO PRN (09:29)
--- NOTE | 2020-04-08 10:14 | RADIOLOGY REPORT (SQ) ---
EXAM DESCRIPTION: CHEST SINGLE VIEW IMAGES COMPLETED DATE/TIME: 04/08/2020 8:36 am REASON FOR STUDY: COUGH COMPARISON: 05/21/2018 EXAM PARAMETERS: NUMBER OF VIEWS: One view. TECHNIQUE: Single frontal radiographic view of the chest acquired. RADIATION DOSE: NA LIMITATIONS: None. FINDINGS: LUNGS AND PLEURA: No opacities, masses or pneumothorax. No pleural effusion. MEDIASTINUM AND HILAR STRUCTURES: No masses. Contour normal. HEART AND VASCULAR STRUCTURES: Heart normal in size. Normal vasculature. BONES: No acute findings. HARDWARE: None in the chest. OTHER: No other significant finding. IMPRESSION: NO ACUTE RADIOGRAPHIC FINDING IN THE CHEST. TECHNICAL DOCUMENTATION: JOB ID: [id number] 2010 [employer]- All Rights Reserved Reading location - IP/workstation name: [email or web address]
[2020-04-08 10:41] VITALS: BP 123/67
--- NOTE | 2020-04-08 14:16 | RADIOLOGY REPORT (SQ) ---
EXAM DESCRIPTION: NO CHG FLUORO; L SPINE 2 VIEWS IMAGES COMPLETED DATE/TIME: 04/08/2020 1:44 pm REASON FOR STUDY: MINIMALLY INVASIVE LUMBAR DECOMPRESSION ASSISTED WITH FLUORO IN OR M48.062 SPINA L STENOSIS, LUMBAR REGION WITH NEUROGENIC AMBROSE Z00.6 ENCNTR FOR EXAM FOR NRML CMPRSN AND CTRL IN CL NCL RSRC COMPARISON: None. FLUOROSCOPY TIME: 4.0 minutes 15 images saved to PACS. TECHNIQUE: Intra-operative images acquired during surgical procedure to evaluate progress. NUMBER OF IMAGES: 15 LIMITATIONS: None. FINDINGS: Images from kyphoplasty performed by Dr. Balderas. IMPRESSION: IMAGE(S) OBTAINED DURING PROCEDURE. COMMENT: Quality ID [id number]: Final reports for procedures using fluoroscopy that document radiation exp osure indices, or exposure time and number of fluorographic images (if radiation exposure indices are not available) Please consult full operative report of the attending physician for description of the procedure. TECHNICAL DOCUMENTATION: JOB ID: [id number] 2010 [employer]- All Rights Reserved Reading location - IP/workstation name: [email or web address]
--- NOTE | 2020-04-08 14:16 | RADIOLOGY REPORT (SQ) ---
EXAM DESCRIPTION: NO CHG FLUORO; L SPINE 2 VIEWS IMAGES COMPLETED DATE/TIME: 04/08/2020 1:44 pm REASON FOR STUDY: MINIMALLY INVASIVE LUMBAR DECOMPRESSION ASSISTED WITH FLUORO IN OR M48.062 SPINA L STENOSIS, LUMBAR REGION WITH NEUROGENIC AMBROSE Z00.6 ENCNTR FOR EXAM FOR NRML CMPRSN AND CTRL IN CL NCL RSRC COMPARISON: None. FLUOROSCOPY TIME: 4.0 minutes 15 images saved to PACS. TECHNIQUE: Intra-operative images acquired during surgical procedure to evaluate progress. NUMBER OF IMAGES: 15 LIMITATIONS: None. FINDINGS: Images from kyphoplasty performed by Dr. Balderas. IMPRESSION: IMAGE(S) OBTAINED DURING PROCEDURE. COMMENT: Quality ID [id number]: Final reports for procedures using fluoroscopy that document radiation exp osure indices, or exposure time and number of fluorographic images (if radiation exposure indices are not available) Please consult full operative report of the attending physician for description of the procedure. TECHNICAL DOCUMENTATION: JOB ID: [id number] 2010 [employer]- All Rights Reserved Reading location - IP/workstation name: [email or web address]
[2020-04-08] MEDS ORDERED: GLYCOPYRROLATE 1 MG/5 ML VIAL ONE (15:20)
== END 2020-04-08 10:30 | disposition home or self-care (01) ==
LOC: OROUT 05:54
PROVIDERS: ATTEND Pain Medicine Interventional Pain Medicine
DX: M48.062 Spinal stenosis, lumbar region with neurogenic claudication (principal); Z00.6 Encounter for examination for normal comparison and control in clinical research program; I10 Essential (primary) hypertension; Z03.818 Encounter for observation for suspected exposure to other biological agents ruled out; Z79.891 Long term (current) use of opiate analgesic; M10.9 Gout, unspecified; E55.9 Vitamin D deficiency, unspecified; E23.6 Other disorders of pituitary gland; E87.1 Hypo-osmolality and hyponatremia
CPT/HCPCS: 36415; 85025; 85610; 85730; 87635; 81001; 71045; 72100; 00630; 0275T; C1889; Q9966; J2250; J3490 ×5; J0690 ×2; J1170; J3301; J2704; C9803; 630